=== PATIENT | female | born 1955 | race Caucasian/White ===

== ENCOUNTER 2024-01-04 12:06 | Outpatient (CLI) | payer MEDICARE, SELFPAY ==
--- NOTE | 2024-01-04 12:09 | XR_ITS ---
FINAL REPORT CLINICAL HISTORY: lt hip pain COMPARISON: None FINDINGS: LEFT HIP: 3 images of the left hip were obtained. There is no evidence of fracture or dislocation. Mild degenerative change is present. There is no soft tissue abnormality identified. IMPRESSION: Mild degenerative change, with no acute bony abnormality. Authenticated and [facility]
== END 2024-01-04 23:59 | disposition home or self-care (01) ==
LOC: RAD 12:07
PROVIDERS: PCP Family Medicine; Visit Provider Physician Assistant
DX: M25.552 Pain in left hip (principal)
CPT/HCPCS: 73502

== ENCOUNTER 2024-01-12 13:55 | Outpatient (CLI) | payer MEDICARE, SELFPAY ==
--- NOTE | 2024-01-12 14:02 | CT_ITS ---
FINAL REPORT TECHNIQUE: Thin section axial CT images of the temporal bones were obtained. Coronal and sagittal reformatted images were also obtained. This study was performed with techniques to keep radiation doses as low as reasonably achievable (ALARA). Individualized dose reduction techniques using automated exposure control or adjustment of mA and/or kV according to the patient's size were employed. CLINICAL HISTORY: r/o cholesteatoma and mastoiditis COMPARISON: None FINDINGS: Right temporal bone: The internal auditory canal has an unremarkable appearance. The inner ear structures are unremarkable. The external auditory canal has an unremarkable appearance. No abnormality is identified of the middle ear cavity. The ossicles are intact. The mastoid air cells and mastoid antrum have an unremarkable appearance, other than opacification of 1 mastoid air cell. No bony mass is identified. Left temporal bone: There is evidence of a prior left mastoidectomy. The ossicles are mostly absent. There is lobular soft tissue in the surgical defect, measuring 20 x 7 mm in size, that may represent inflammatory soft tissue, nonspecific. There is thickening of the presumed left tympanic membrane. No bony mass is identified. IMPRESSION: In the left temporal bone, a prior mastoidectomy has been performed. The ossicles are mostly absent. Soft tissue as described above is present in the surgical defect, that may represent inflammatory soft tissue, nonspecific. There is thickening of the presumed left tympanic membrane. There is a small amount of fluid in a mastoid air cell, otherwise unremarkable right temporal bone. Reviewed, Interpreted and Dictated by Juan Abel III, MD Transcribed by Pennie Hensley Authenticated and [facility]
== END 2024-01-12 23:59 | disposition home or self-care (01) ==
LOC: RAD 13:56
PROVIDERS: PCP Family Medicine; Visit Provider Nurse Practitioner
DX: H92.02 Otalgia, left ear (principal); H93.12 Tinnitus, left ear; H91.92 Unspecified hearing loss, left ear
CPT/HCPCS: 70480

== ENCOUNTER 2024-04-25 15:00 | Outpatient (RCR) | payer MEDICARE, SELFPAY ==
--- NOTE | 2024-04-08 12:33 | HMH.PTOPEV ---
PT Outpatient Evaluation Rehab PT Outpatient Evaluation Start: 04/08/24 10:01 Freq: Status: Active Protocol: Document 04/08/24 10:02 MARY LOUSERBRANDAN (Rec: 04/08/24 12:32 PDESEROUX [id number]) E-signed By Raoul Strange, PT Outpatient Therapy Subjective History Subjective History Pt. is a 69 year old female who presents to [facility] Outpatient Physical Therapy Services in [place] for the outpatient initial evaluation this date( 04/08/24) w/ c/o acute on chronic and constant LLE lateral hip P!, TTP, and buckling of insidious onset w/ initial onset in December 2023 that has progressively been getting worse over the last week. Pt. reports having some symptom relief w/ cortisone injection. Pt. reports having minimal symptom relief w/ alternating MHP w/ ice. Pt. reports when symptoms are at it's worse I can't do anything. Pt. reports symptoms worsen w/ donning/ doffing pants, lifting LLE w/ vehicle transfers, and prolonged walking. Pt. describes symptoms at a constant 4/10 that worsens to a 10/10 w/ activity. Pt. reports having previous radiographs of the LLE hip indicated osteoarthritis. Pt. 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 Pt. RTMD in 1 month. Current medications include Tylenol, Pravastatin, Propranolol, Amlodipine, and Cetirizine. PMH includes Hypertension, GERD, pacemaker, sleeve gastrectomy, and section. New diagnosis of cancer in past 12 No months? Chief Complaint Pain,Stiff,Gives out/Unstable, Weakness Symptom Type Ache,Sharp,Stabbing,Shooting Symptoms Relieved By Rest/Positioning,Ice,OTC Meds Symptoms Aggravated By Standing,Physical Activity, Twisting,Walking,Lifting Prior Functional Limitations None Current Functional Limitations Lifting,Housework,Dressing, Sleeping,Squatting,Recreation Activity,Walking,Stairs Symptom Description Constant but Variable,Activity Dependent Level of pain today (0-10) 4 Pain scale - at its best (0-10) 3 Pain scale - at its worst (0-10) 10 Hip/Knee Eval Gait Observation General Gait Pattern Observation Antalgic Gait,Decrease Weight Bear (L),Decrease Stride Lngth (R) Assistive Device Assistive Devices None / NA Palpation Tenderness left Knee Palpation Overall Comment grade 4 +TTP grtr. trchntr., IT band, glute med./max./ piriformis mm. Hip Palpation Findings Tenderness,Spasm,Trigger Point MMT Hip Flexion Strength Grade 3 Fair Hip Abduction Strength Grade 3+ Fair+ Hip Adduction Strength Grade 4 Good Hip Extension Strength Grade 4- Good- Gluteus Chioc Strength Grade 4- Good- Hip External Rotation Strength Grade 3 Fair Hip Internal Rotation Strength Grade 3 Fair Knee Extension Strength Grade 3+ Fair+ Knee Flexion Strength Grade 3 Fair Knee Extensors Muscle Tone Description Severe Hypertonicity Knee Flexors Muscle Tone Description Severe Hypertonicity Hip Extensors Muscle Tone Description Severe Hypertonicity Hip Flexors Muscle Tone Description Severe Hypertonicity ROM Hip Flexion w/Knee Flexed Active Range 67 of Motion (degrees) Hip Flexion w/Knee Flexed Passive Range 99 of Motion (degrees) Hip Extension Active Range of Motion ( 13 degrees) Hip Extension Passive Range of Motion ( 16 degrees) Hip External Rotation Active Range of 20 Motion (degrees) Hip External Rotation Passive Range of 33 Motion (degrees) Hip Internal Rotation Active Range of 23 Motion (degrees) Hip Internal Rotation Passive Range of 35 Motion (degrees) Hip ROM Limitations Soft Tissue Tightness,Pain, Muscle Weakness,Muscle Tone, Tightness on Left,Pain on Left DTR bilateral Rt Patellar 2+ Lt Patellar 2+ Rt Ankle 2+ Lt Ankle 2+ Sensation LE Dermatome Level L1,L2,L3,L4,L5,S1 Comment vocalized light touch sensation WNLs in BLEs in above patterns Special Tests Hip Elías Test Positive Left Hip Piriformis Test Negative Left Sciatic Nerve Tension Test Negative Left Hip Scouring (Quadrant) Test Positive Left Hussain Test Positive Outpatient Therapy Assessment Impairments Problems/Impairmments Palpation Tenderness,Impaired Range of Motion,Impaired Strength,Impaired Endurance, Impaired Transfers,Impaired Gait Pattern,Impaired Walking, Impaired Lifting,Impaired Dressing,Impaired Shower/ Bathing,Impaired Household Care,Impaired Stair Climbing, Impaired Squatting,Impaired Recreational Activities, Subjective C/O Pain,Impaired Self Care/Self Management Prognosis Rehab Potential Good Comment w/ HEP compliancy Clinical Impression Consistent with Diagnosis Yes Consistent with LLE trochanteric bursitis Additional details: LLE ITBS Short Term Goals Number of Weeks 2 Decreased Palpation Tenderness Yes: grade 1-2 +TTP Decrease Subjective C/O Pain Yes: worse:07/06 Patient to be Ind w/ HEP Yes Small Boat Engineer Goals Number of Weeks 4-6 Decreased Palpation Tenderness Yes: grade 1 +TTP Increase Range of Motion Yes: LLE hip A/PROM WFL/ symmetrical to RLE grossly Increase Strength Yes: 4+ to 5/5 RLE hip MMT scores grossly Improve Transfers Yes: Pt. will be able to transfer LLE IND. w/o difficulty into/out vehicle Improve Gait Pattern without Assistive Yes Device Increase Ability to Walk Yes: >20' w/o dfficulty Increase Ability to Stand Yes: >10' w/o difficulty Improve Ability to Dress Self Yes: Pt. will don/doff pants w /o dfficulty Improve Ability to Climb Stairs Yes Improve LEFI Score Yes Decrease Subjective C/O Pain Yes: worse:-04/08 Patient to be Ind w/ Advanced HEP Yes Outpatient Therapy Plan of Care Treatment Plan May Include Therapeutic Exercise Including Home Yes Exercise Program Manual Therapy Techniques Yes Neuromuscular Re-education Yes Therapeutic Activities to Return to Yes Previous Functional/Work Level Gait Training Yes ADL/Self Care Education Yes Dry Needling Yes Thermal Modalities Yes Electrical Stimulation No: pacemaker Ultrasound/Phonophoresis Yes: precaution:pacemker Iontophoresis Yes: precaution:pacemaker Vasopneumatic Compression Pump Yes Massage Yes Eval/Re-Eval Yes Aquatic Therapy Yes Frequency Times per week 2 Duration Number of Weeks 4-6 Addendums This patient is a candidate for social No or vocational rehab? Patient/Guardian verbally acknowledges Yes understanding of treatment program and consents to further treatment? Patient/Guardian verbally acknowledges Yes understanding of diagnosis, prognosis and goals for treatment? Eval Complexity PT Charges 83035 - Low Complexity Shoulder/Elbow Eval Shoulder Objective Measurements Elbow Objective Measurements PHYSICIAN CERTIFICATION: I certify the specified therapy services for Farrah Davis are required, authorized, and reviewed every 30 days.
== END 2024-04-25 23:59 | disposition home or self-care (01) ==
LOC: PT 15:00
PROVIDERS: PCP Internal Medicine; Visit Provider Physician Assistant
DX: M70.62 Trochanteric bursitis, left hip (principal); M76.32 Iliotibial band syndrome, left leg
CPT/HCPCS: 20560; 97035; 97110; 97163

== ENCOUNTER 2024-05-09 07:56 | Outpatient (RCR) | payer MEDICARE, SELFPAY | END 2024-05-27 15:56 | disposition home or self-care (01) | LOC: PT 07:56 | PROVIDERS: PCP Internal Medicine; Visit Provider Physician Assistant | DX: M70.62 Trochanteric bursitis, left hip (principal); M76.32 Iliotibial band syndrome, left leg | CPT/HCPCS: 97110 ==

== ENCOUNTER 2024-06-14 13:23 | Outpatient (CLI) | payer MEDICARE, SELFPAY ==
--- NOTE | 2024-06-14 13:26 | XR_ITS ---
FINAL REPORT CLINICAL HISTORY: low back pain, nki FINDINGS: LUMBAR SPINE 3 views were obtained. There is no acute fracture. Vertebrae are normal height. There is no malalignment. The disc spaces are preserved. There is moderate facet sclerosis in the lower lumbar spine. There is no soft tissue abnormality. IMPRESSION: No acute bony abnormality. Reviewed, Interpreted and Dictated by Cody Franklin MD Transcribed by Shobha Shepard Authenticated and [facility]
== END 2024-06-14 23:59 | disposition home or self-care (01) ==
LOC: RAD 13:24
PROVIDERS: PCP Family Medicine; Visit Provider Family Medicine
DX: M54.50 Low back pain, unspecified (principal)
CPT/HCPCS: 72100

== ENCOUNTER 2024-07-26 10:00 | Outpatient (RCR) | payer MEDICARE, SELFPAY | END 2024-07-26 23:59 | disposition home or self-care (01) | LOC: PT 10:00 | PROVIDERS: PCP Family Medicine; Visit Provider Physician Assistant | DX: M70.62 Trochanteric bursitis, left hip (principal); M76.32 Iliotibial band syndrome, left leg | CPT/HCPCS: 20560; 97110; 97140; 97163 ==

== ENCOUNTER 2024-09-08 06:03 | Observation (INO) | payer MEDICARE, SELFPAY ==
[2024-09-08] VITALS (11 sets, daily range): BP systolic 108–144; BP diastolic 62–77; PULSE 63–82; RESP 11–21; TEMP 36.4–37.1; O2SAT 93–97; BMI 32.0; BMI 31.8
--- NOTE | 2024-09-08 06:05 | ECG_ITS ---
APPROVED REPORT Exam: Resting ECG HR:76 bpm ECG Measurements Heart Rate 76 AXES OR 208 P 48 QRSd 77 QRS 0 QT 394 T 32 QTc 424 Conclusion SINUS RHYTHM NORMAL ECG Electronically signed by : CHOLO CABRERA, 09/09/2024 23:02:44
--- OUTSIDE RECORDS SUMMARY | 2024-09-08 06:09 | XMS_ITS | Clinical Summary ---
Author Organization Healthcare Address [address] [id number] Care Team Providers Care Rn Interventional Name Role Phone Eros Tucker MD Primary Care Provider Shani Watt Jacque Roselyn HEADER SETUP OPERATOR Unavailable [phone] Allergies Active Allergy Reactions Criticality Noted Date Comments Penicillins Unknown - Patient st ates they do not know rxn details Low 02/27/1962 Medications amLODIPine (Norvasc) 5 MG tablet Take 1 tablet (5 mg) by mouth 1 (one) time each day. Active aspirin 81 MG EC tablet 1 tablet (81 mg). 12/28/2023 Active sertraline (Zoloft) 100 MG tablet 1 tablet (100 mg). 12/28/2023 Active pravastatin (Pravachol) 40 MG tablet 1 tablet (40 mg). 12/28/2023 Active Pantoprazole Sodium-NaCl 40-0.9 MG/100ML-% solution 08/16/2021 Active LORazepam (Ativan) 1 MG tablet 1 tablet (1 mg). 12/28/2023 Active Active Problems No known active problems Encounters Date Type Department Care Team Description 07/22/2024 Travel from Last 3 Months Social History Tobacco Use Types Packs/Day Years Used Date Smoking Tobacco: Unknown Tobacco Cessation:Counseling Given: Not Answered Comments Unknown Sex and Gender Information Value Date Recorded Sex Assigned at Not on file Legal Sex Female 1:18 PM EST Gender Identity Not on file Sexual Orientation Not on file Last Filed Vital Signs Vital Sign Reading Time Taken Comments Blood Pressure 134/78 02/05/2024 8:26 AM EST Pulse 73 02/05/2024 8:26 AM EST Temperature - - Respiratory Rate - - Oxygen Saturation - - Inhaled Oxygen Concentration - - Weight 78.5 kg (173 lb) 02/05/2024 8:26 AM EST Height - - Body Mass Index - - Plan of Treatment Health Maintenance Due Date Last Done Comments [facility]-Bone Density Scan 1957 [facility]-Depression Screening 1957 [facility]-Hepatitis C Screening 1957 [facility]-Infant/Child/Adol SDOH Screenings 1957 [facility]- SDOH Screenings 1975 [facility]-Adult SDOH Screenings 1975 [facility]-DTaP,Tdap,and Td Vaccine s (1 - Tdap) 1976 CT Colonography 2002 Colonoscopy 2002 FIT-DNA 2002 FIT 2002 FOBT 2002 Sigmoidoscopy 2002 [facility]-Colorectal Cancer Screening 2002 [facility]-Breast Cancer Screening 2007 [facility]-Pneumococcal Vaccine: 50 + Years (1 of 1 - PCV) 2007 [facility]-Zoster Vaccines (1 of 2) 2007 LOH-SPYMG-03 Vaccine (1 - 20 24-25 season) 2023 [facility]-Influenza Vaccine (#1) 2024 [facility]-RSV Vaccine: 60+ Years o r (1 - 1-dose 75+ series) 2032 HPV Vaccines Aged Out No longer eligi ble based on patient's age to complete this topic [facility]-HIB Vaccines Aged Out No longer e ligible based on patient's age to complete this topic [facility]-Hepatitis A Vaccines Aged Out No longer eligible based on patient's age to complete this topic [facility]-IPV Vaccines Aged Out No longer e ligible based on patient's age to complete this topic [facility]-Rotavirus Vaccines Aged Out No lo nger eligible based on patient's age to complete this topic Insurance [employer] Care Teams Rn Interventional Relationship Specialty Start Date End Date Eros Tucker MD PCP - General Family Medicine 01/18/24 Jacque Watt APRN [address] [place] [address] [place] [address] 01/18/24
--- OUTSIDE RECORDS SUMMARY | 2024-09-08 06:09 | XMS_ITS | Clinical Summary ---
Author Organization [facility] Address [address] [place] [id number] Phone Care Team Providers Care Artificial Leather Calender Operator Name Role Phone Unavailable Primary Care Provider Unavailabl e Social History Tobacco Use Types Packs/Day Years Used Date Smoking Tobacco: Never Assessed Comments Unknown Sex and Gender Information Value Date Recorded Sex Assigned at Not on file Legal Sex Female 1:32 PM EDT Gender Identity Not on file Sexual Orientation Not on file Plan of Treatment Upcoming Encounters Date Type Department Care Team (Late st Contact Info) Description 09/12/2024 1:30 PM EDT Office Visit [facility] [address] [place] [address] [place] [address] [place] [address] [place] [address] Health Maintenance Due Date Last Done Comments Annual Wellness Exam 1960 Hepatitis C Screening 1975 DTaP/TDaP/Td (1 - Tdap) 1976 Breast Cancer Screening 1997 Cologuard 2002 Colon Cancer Screening 2002 Colonoscopy 2002 FIT 2002 Sigmoidoscopy 2002 Virtual Colonography 2002 Pneumococcal Vaccine 50+ (1 of 1 - PCV) 2007 Zoster (1 of 2) 2007 Bone Density Screening 2022 COVID-19 Vaccine ( - 2023-2 5 season) 2023 Influenza Vaccine (#1) 2024 Hepatitis B Vaccine Aged Out No longe r eligible based on patient's age to complete this topic Meningococcal B Vaccine Aged Out No l onger eligible based on patient's age to complete this topic
--- OUTSIDE RECORDS SUMMARY | 2024-09-08 06:09 | XMS_ITS | Encounter Summary ---
Author Organization Healthcare Address [address] [id number] Care Team Providers Care Press Machine Feeder Name Role Phone Eros Tucker MD Primary Care Provider Jacque Parker JEWEL BEARING GRINDER Unavailable [phone] Encounter Details Date Type Department Care Team (Latest Contact Info) Description 07/22/2024 Travel Social History Tobacco Use Types Packs/Day Years Used Date Smoking Tobacco: Unknown Comments Unknown Sex and Gender Information Value Date Recorded Sex Assigned at Not on file Legal Sex Female 1:18 PM EST Gender Identity Not on file Sexual Orientation Not on file documented as of this encounter Plan of Treatment Not on file documented as of this encounter Visit Diagnoses Not on filedocumented in this encounter Additional Health Concerns Assessment Noted Time A Body Mass Index follow-up plan has been documented for the patient 02/11/2024 11:38 PM EST documented as of this encounter Care Teams Press Machine Feeder Relationship Specialty Start Date End Date Eros Tucker MD PCP - General Family Medicine 01/18/24 Jacque Watt, CORBIN [address] [place] [address] 01/18/24 documented as of this encounter
--- NOTE | 2024-09-08 06:16 | XR_ITS ---
PROCEDURE INFORMATION: Exam: XR Chest Exam date and time: 09/08/2024 6:24 AM Age: 69 years old Clinical indication: Pain; Other: Cp; Additional info: Chest pain TECHNIQUE: Imaging protocol: Radiologic exam of the chest. Views: 1 view. COMPARISON: No relevant prior studies available. FINDINGS: Tubes, catheters and devices: Transvenous pacemaker leads in the heart Lungs: Unremarkable. No consolidation. Pleural spaces: Unremarkable. No pleural effusion. No pneumothorax. Heart/Mediastinum: Unremarkable. No cardiomegaly. Bones/joints: Unremarkable. IMPRESSION: No acute findings.
[2024-09-08 06:23] LABS: Hematocrit 37.8 % (37.0-47.0); Hemoglobin 11.4 g/dL (12.2-16.2); Immature Granulocytes % 0.4 %; Mean Corpuscular HGB Conc 30.2 g/dL (31.8-35.4); Mean Corpuscular Hemoglobin 24.3 pg (27.0-31.2); Mean Corpuscular Volume 80.6 fl (81-99); Nucleated Red Blood Cells % 0 %; Platelet Count 343 K/mm3 (142-424); Red Blood Count 4.69 M/mm3 (4.20-5.40); Red Cell Distribution Width-SD 46.3 fL; White Blood Count 8.4 K/mm3 (4.8-10.8)
[2024-09-08] MEDS: ASPIRIN 81MG CHEWABLE TABLET 243 MG PO (06:24)
[2024-09-08] MEDS: NITROGLYCERIN 0.4MG SL TABLET 0.4 MG SL (06:24)
[2024-09-08 06:32] LABS: Alanine Aminotransferase 25 U/L (12-78); Albumin Level 4.3 g/dl (3.5-5.0); Albumin/Globulin Ratio 1.3 (1.1-1.8); Alkaline Phosphatase 79 U/L (38-126); Anion Gap 15.2 mEq/L (5-15); Aspartate Amino Transferase 33 U/L (14-36); Bilirubin,Total 0.6 mg/dl (0.2-1.3); Blood Urea Nitrogen 14 mg/dl (7-17); Calcium 8.4 mg/dl (8.4-10.2); Carbon Dioxide 27 mmol/L (22.0-30.0); Chloride 103 mmol/L (98-107); Creatinine Clearance Estimated 68 mL/min (50-200); Creatinine,Serum 1.00 mg/dl (0.52-1.04); Estimated Glomerular Filt Rate 55 ml/min (>60); GFR (African American) 67 ML/MIN (>60); Globulin 3.2 g/dL (1.3-3.2); Potassium 4.2 mmoL/L (3.5-5.1); Sodium 141 mmol/L (136-145); Total Protein,Serum 7.5 g/dl (6.3-8.2)
[2024-09-08 06:36] LABS: D-Dimer 0.90 ug/mL (0.0-0.5)
[2024-09-08 06:39] LABS: Glucose 85 mg/dl (74-100)
--- NOTE | 2024-09-08 06:43 | CT_ITS ---
PROCEDURE INFORMATION: Exam: CTA Chest With Contrast Exam date and time: 09/08/2024 7:11 AM Age: 69 years old Clinical indication: Pain; Shortness of breath; Other: Cp; Additional info: Subjective SOA, cp, dimer 0.9 TECHNIQUE: Imaging protocol: Computed tomographic angiography of the chest with contrast. Exam focused on the arteries. 3D rendering (Not supervised by radiologist): MIP and/or 3D reconstructed images were created by the technologist. Radiation optimization: All CT scans at this facility use at least one of these dose optimization techniques: automated exposure control; mA and/or kV adjustment per patient size (includes targeted exams where dose is matched to clinical indication); or iterative reconstruction. Contrast material: ISOVUE; Contrast volume: 70 ml; Contrast route: INTRAVENOUS (IV); COMPARISON: CR XR CHEST PORTABLE 09/08/2024 6:24 AM FINDINGS: Tubes, catheters and devices: Transvenous pacemaker leads in the heart Pulmonary arteries: Small pulmonary embolus in the right middle lobe. (series 5 image 56).. Aorta: No aneurysm of the aorta. No dissection of the aorta. Lungs: Unremarkable. No consolidation. No masses. Pleural spaces: Unremarkable. No pneumothorax. No pleural effusion. Heart: Right ventricular dysfunction 1.1 Coronary arteries: Coronary artery calcifications may indicate coronary artery disease. Lymph nodes: Unremarkable. No enlarged lymph nodes. Diaphragm: Mild hiatal hernia Liver: Lobulated liver consistent with cirrhosis. Gallbladder and biliary ducts: There may be gallstones in the gallbladder . Kidneys: 2.8 cm simple cyst left kidney . No follow-up imaging recommended . Stomach: Surgical clips in the stomach Bones/joints: Unremarkable. No acute fracture. Soft tissues: Unremarkable. IMPRESSION: 1. Small pulmonary embolus in the right middle lobe. (series 5 image 56).. 2. No aneurysm of the aorta. 3. No dissection of the aorta. 4. There may be gallstones in the gallbladder . 5. Lobulated liver consistent with cirrhosis. COMMENTS: Consistent with the [employer]'s Incidental Findings Committee white paper (J Am Glen Radiol 2018): Any incidental renal lesion less than 1 cm or classified as too small to characterize, or any incidental cystic renal lesion characterized as simple-appearing, is likely benign. No follow-up imaging is recommended for these lesions per consensus recommendations based on imaging criteria.
--- NOTE | 2024-09-08 06:46 | ED_ITS ---
Discharge Plan Disposition Patient Disposition: Admitted Condition: Good Clinical Impressions Clinical Impression: Pulmonary embolism, Right ventricular dysfunction Discharge ED Provider: Elizabeth Dorsey HPI <Lea Boateng MD - Last Filed: 09/08/24 07:01> General Chief Complaint: Chest Pain Stated Complaint: Chest Pain Time Seen by Provider: 09/08/24 06:23 Mode of Arrival: Ambulatory Source of Information: Patient Description of Symptoms (Recalled from ER Triage Doc. by RN): pt states she woke up with chest pain 2 hours prior to arrival. Pain at this time was rated 9/10 sharp and stabbing and felt SOA. Pt states it has improved, rating pain 3/10 and no longer feels SOA. Pt states she has had episodes in the past few months where she will get SOA and feels like her pulse goes way up. Pt also states she had sinus infection and was taking steroid and zpack that she finished 1 week ago. History of Present Illness HPI narrative: 69-year-old female with history of hypertension, heartburn, reflux on pantoprazole, pacemaker presents to the ER with chest pain that woke her up a little over 2 hours prior to arrival. Patient reports her pain woke her up at 10 out of 10, stabbing and radiated to her back but was not a tearing sensation. She took 1 baby aspirin at home. She states it started to improve while they were driving in the car on their way here and it has continued to improve since arriving in the ER. At the time of triage she stated her pain was only a 3 out of 10, to me she reports no pain at the time of my assessment. She states that for the last week or so she has felt a sensation of shortness of breath without actually being short of breath or having low oxygen levels. She states she had a sinus infection and finished antibiotics 1 week ago. No current fevers or chills, no dizziness or headache, no numbness, tingling, or weakness. Chest pain did not radiate except directly through to the back, no swelling in the feet or legs, no nausea, vomiting, or diarrhea. She does not complain of any other symptoms or illness at this time. Related Data Home Medications ?Medication ?Instructions ?Recorded ?Confirmed phentermine 37.5 mg tablet 37.5 mg PO DAILY 09/08/24 0 09/08/24 Previous Rx's ?Medication ?Instructions ?Recorded amlodipine 10 mg tablet 10 mg PO DAILY #90 tabs 07/28 04/23 pravastatin 40 mg tablet 40 mg PO DAILY 90 days #90 t abs 08/08/24 sertraline 100 mg tablet 100 mg PO DAILY 90 days #90 tabs 08/08/24 pantoprazole 40 mg tablet,delayed 40 mg PO DAILY 90 da ys #90 tabs 08/12/24 release Allergies Allergy/AdvReac Type Severity Reaction Status Date / Time Penicillins AdvReac Mild Verified 08/26/24 10:44 [facility] <Lea Boateng MD - Last Filed: 09/08/24 07:01> [facility] Disclaimer: The information contained in this section may have been updated after the patient was seen, as this information can be updated by other users. 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 Tinnitus, left ear Otalgia, left ear History of cardiac pacemaker Surgical History H/O: section History of sleeve gastrectomy History of left mastoidectomy Social History Smoking Status: Never smoker alcohol intake: never current occupational status: retired Travel in the last 8 weeks?: Inside the [place] Have you lived/traveled outside US in past 30 days?: No Contact w/someone who lives/traveled outside US past 30 days?: No Exposure to someone with infectious disease in past 14 days?: No Do you have a fever (greater than 100.4 F or 38 C)?: No Have you tested positive for COVID-19?: No Exposed to someone with COVID-19 in past 14 days?: No Do you have a sore throat?: No Do you have a cough?: No Do you have any weakness?: No Do you have any diarrhea?: No Are you experiencing any unusual bleeding?: No Do you have any muscle aches/pain?: No Do you have any abdominal pain?: No Are you experiencing loss of taste or smell?: No Other Medical History Have you received the Pneumonia Vaccine: No <Lea Boateng MD - Last Filed: 09/08/24 07:01> ROS Obtained: Yes Systems reviewed as appropriate & no additional complaints except as documented Per HPI Physical Exam <MD Pacheco Cuellar Last Filed: 09/08/24 07:01> General General appearance: alert, in no apparent distress and obese Head Head exam: atraumatic and normocephalic Eye Eye exam: Present PERRL and EOMI ENT ENT exam: Present mucous membranes moist Neck Neck exam: Present normal inspection and full ROM Chest Chest inspection: Present symmetric chest wall rise; Absent tenderness Respiratory Respiratory exam: Present normal lung sounds bilaterally and other (Saturating 94% on room air); Absent respiratory distress, wheezes or stridor Cardiovascular Cardiovascular exam: Present regular rate and normal rhythm Abdominal Exam Abdominal exam: Present soft; Absent distention or tenderness Extremities Exam Extremities exam: Present full ROM Neurological Exam Neurological exam: Present alert and oriented X3; Absent motor sensory deficit Psychiatric Psychiatric exam: Present normal affect and normal mood Skin Skin exam: Present warm and dry HEART Score <MD Pacheco Cuellar Last Filed: 09/08/24 07:01> HEART Score HEART Score assessment performed?: Yes History (anamnesis): Slightly suspicious ECG: Normal Age: >65 years Risk factors: 3 or more risk factors Troponin: </= normal limit HEART Score: 4 <Elizabeth Dorsey DO - Last Filed: 09/08/24 10:12> HEART Score HEART Score: 4 Critical Care <Lea Boateng MD - Last Filed: 09/08/24 07:01> Critical Care Time Critical Care Time: No <DO Pacheco Gillis Last Filed: 09/08/24 10:12> Critical Care Time Critical Care Time: Yes Attestation: On 09/08/24, the high probability of a clinically significant, sudden or life threatening deterioration of the following system(s) required my full and direct attention, intervention and personal management. The time I documented below is in addition to time spent performing reported procedures but includes the following listed in this critical care notation. Total Time Total Critical Care Time: 35 Medical Decision Making <Lea Boateng MD - Last Filed: 09/08/24 07:01> Medical Records Medical records reviewed: Yes I reviewed the patient's medical records. Néstor Inquiry Pt receiving controlled substance: No Vital Signs Vital Signs: 09/08/24 06:09 09/08/24 06:19 09/08/24 06:30 Temperature 98.7 F Temperature Source Oral Pulse Rate 69 71 Pulse Rate [Right Radial] 69 Respiratory Rate 21 11 L Blood Pressure 108/67 L Blood Pressure [Right Arm] 133/70 Blood Pressure Mean Blood Pressure Mean [Right Arm] 91 Blood Pressure Source [Right Arm] Automatic Cuff Blood Pressure Position [Right Arm] Sitting 02 Sat by Pulse Oximetry 94 L 96 Oxygen Delivery Method Room Air 09/08/24 07:30 09/08/24 08:00 09/08/24 08:30 Temperature Temperature Source Pulse Rate 64 69 69 Pulse Rate [Right Radial] Respiratory Rate 18 15 21 Blood Pressure 125/75 117/67 135/71 Blood Pressure [Right Arm] Blood Pressure Mean 85 Blood Pressure Mean [Right Arm] Blood Pressure Source [Right Arm] Blood Pressure Position [Right Arm] 02 Sat by Pulse Oximetry 93 L 97 95 Oxygen Delivery Method Room Air Room Air 09/08/24 09:28 Temperature 98.2 F Temperature Source Pulse Rate 64 Pulse Rate [Right Radial] Respiratory Rate 14 Blood Pressure 144/76 H Blood Pressure [Right Arm] Blood Pressure Mean Blood Pressure Mean [Right Arm] Blood Pressure Source [Right Arm] Blood Pressure Position [Right Arm] 02 Sat by Pulse Oximetry Oxygen Delivery Method Room Air Lab Data Labs: Lab Results 09/08/24 06:09: WBC 8.4, RBC 4.69, Hgb 11.4 L, Hct 37.8, MCV 80.6 L, MCH 24.3 L, MCHC 30.2 L, RDW 16.0, Plt Count 343, MPV 9.9, Neut % (Auto) 48.0, Lymph % (Auto) 39.4, Mills % (Auto) 8.9, Eos % (Auto) 2.1, Baso % (Auto) 1.2, Neut # (Auto) 4.1, Lymph # (Auto) 3.3, Mills # (Auto) 0.8, Eos # (Auto) 0.2, Baso # (Auto) 0.1, PT 10.5, INR 0.94, APTT 23.4, D-Dimer 0.90 H, Sodium 141, Potassium 4.2, Chloride 103, Carbon Dioxide 27, Anion Gap 15.2 H, BUN 14, Creatinine 1.00, Estimated Creat Clear 68, Estimated GFR 55 L, Est GFR ( Amer) 67, Glucose 85, Calcium 8.4, Total Bilirubin 0.6, AST 33, ALT 25, Alkaline Phosphatase 79, Troponin I < 0.01, Total Protein 7.5, Albumin 4.3, Globulin 3.2, Albumin/Globulin Ratio 1.3, HCV Ab TRISTAN w/Rflx PCR Qn Negative, HIV Ag/Ab Combo Qual Negative 09/08/24 06:09 09/08/24 06:09 Response Orders (Tests/Meds): ED MEDICATIONS Generic Name Dose Route Start Last Admin Trade Name Freq PRN Reason Stop Dose Admin Acetaminophen 650 mg 09/08/24 09:08 Acetaminophen 325mg Tab PO 10/08/24 09:07 Q4HP PRN Fever or Mild Pain (1-3) Enoxaparin Sodium 80 mg 09/08/24 08:30 09/08/24 09:04 Enoxaparin 100mg/Ml Syringe 1 mg/kg (80 mg) 10/08/24 08:29 80 mg SUBCUT Administration Q12H TAHIR Morphine Sulfate 4 mg 09/08/24 09:08 Morphine 4mg/Ml Syringe IV 10/08/24 09:07 Q4HP PRN Severe Pain (7-10) Nitroglycerin 0.4 mg 09/08/24 06:16 09/08/24 06:24 Nitroglycerin 0.4mg Sl Tablet SL 09/09/24 06:16 0.4 mg Q5MINP PRN Administration Chest Pain Ondansetron HCl 4 mg 09/08/24 09:08 Ondansetron 4mg/2ml Vial IV 10/08/24 09:07 Q8HP PRN Nausea Discontinued Medications Generic Name Dose Route Start Last Admin Trade Name Freq PRN Reason Stop Dose Admin Aspirin 243 mg 09/08/24 06:16 09/08/24 06:24 Aspirin 81mg Chewable Tablet PO 09/08/24 06:17 243 mg ONCE ONE Administration Iopamidol 70 ml 09/08/24 07:18 09/08/24 07:19 Iopamidol-370 (76%);100ml Bottle IV 09/08/24 07:19 70 ml ONCE ONE Administration Sodium Chloride 10 ml 09/08/24 07:18 09/08/24 07:19 Sodium Chloride 0.9% 10ml Syr (Rad Only) IV 09/08/24 07:19 10 ml ONCE ONE Administration Sodium Chloride 50 ml 09/08/24 07:18 09/08/24 07:19 0.9 % Sodium Chloride 50 Ml Vial IV 09/08/24 07:19 50 ml ONCE ONE Administration ORDERS Category Date Time Status CT angio chest PE protocol Stat Cat Scan 09/08/24 06:43 Completed XR chest portable Stat Exams 09/08/24 06:16 Completed Complete Blood Count Auto Diff Stat Lab 09/08/24 06:09 Completed Comprehensive Metabolic Panel Stat Lab 09/08/24 06:09 Completed D-Dimer Stat Lab 09/08/24 06:09 Completed HIV Combo Routine Lab 09/08/24 06:09 Completed Hepatitis C Ab Qual. W/ RFX Routine Lab 09/08/24 06:09 Completed PT INR [Prothrombin Time INR] Stat Lab 09/08/24 06:09 Completed PTT [Activated Partial Thrombo Time] Stat Lab 09/08/24 06:09 Completed Troponin I Q3H Lab 09/08/24 09:01 Completed Troponin I Q3H Lab 09/08/24 12:30 Ordered Troponin I Stat Lab 09/08/24 06:16 Completed 12-lead EKG Request [ECG Request] Stat Y 09/08/24 06:06 Ordered MDM Narrative Medical Decision Narrative: In summary, this 69-year-old female with comorbidities described in the HPI which may not be at goal therapy presents to the emergency department today with chest pain starting 2 hours prior to arrival but has now resolved. On initial evaluation patient is hemodynamically stable, afebrile, GCS 15, patient has no symptoms at this time, chest pain is not reproducible on exam, cardiopulmonary exam benign. Differential diagnosis includes but is not limited to ACS, PE, esophageal spasm, electrolyte abnormality, pneumothorax, among others. Ruling out most morbid conditions throughout my assessment. Based on these concerns I ordered serum labs, D-dimer, cardiac workup ECG personally interpreted demonstrates normal sinus rhythm, rate 76, normal axis, normal MN and QTc, no STEMI. Patient received aspirin for treatment. Labs personally reviewed demonstrate no leukocytosis, mild anemia which is nonspecific and nonactionable, normal platelets, CMP nonactionable, initial troponin undetectably low less than 0.01, D-dimer 0.9, with patient's complaint of shortness of breath and chest pain we will pursue this with CTA PE. Chest x-ray personally interpreted does not demonstrate acute thoracic abnormality, see radiology read for final interpretation which is pending at this time. CT angiography pending. Patient handed off to Dr. Dorsey in stable condition with no symptoms at this time. Pending radiology studies and serial troponin <Elizabeth N Willian, DO - Last Filed: 09/08/24 10:12> Vital Signs Vital Signs: 09/08/24 06:09 09/08/24 06:19 09/08/24 06:30 Temperature 98.7 F Temperature Source Oral Pulse Rate 69 71 Pulse Rate [Right Radial] 69 Respiratory Rate 21 11 L Blood Pressure 108/67 L Blood Pressure [Right Arm] 133/70 Blood Pressure Mean Blood Pressure Mean [Right Arm] 91 Blood Pressure Source [Right Arm] Automatic Cuff Blood Pressure Position [Right Arm] Sitting 02 Sat by Pulse Oximetry 94 L 96 Oxygen Delivery Method Room Air 09/08/24 07:30 09/08/24 08:00 09/08/24 08:30 Temperature Temperature Source Pulse Rate 64 69 69 Pulse Rate [Right Radial] Respiratory Rate 18 15 21 Blood Pressure 125/75 117/67 135/71 Blood Pressure [Right Arm] Blood Pressure Mean 85 Blood Pressure Mean [Right Arm] Blood Pressure Source [Right Arm] Blood Pressure Position [Right Arm] 02 Sat by Pulse Oximetry 93 L 97 95 Oxygen Delivery Method Room Air Room Air 09/08/24 09:28 Temperature 98.2 F Temperature Source Pulse Rate 64 Pulse Rate [Right Radial] Respiratory Rate 14 Blood Pressure 144/76 H Blood Pressure [Right Arm] Blood Pressure Mean Blood Pressure Mean [Right Arm] Blood Pressure Source [Right Arm] Blood Pressure Position [Right Arm] 02 Sat by Pulse Oximetry Oxygen Delivery Method Room Air Lab Data Labs: Lab Results 09/08/24 06:09: WBC 8.4, RBC 4.69, Hgb 11.4 L, Hct 37.8, MCV 80.6 L, MCH 24.3 L, MCHC 30.2 L, RDW 16.0, Plt Count 343, MPV 9.9, Neut % (Auto) 48.0, Lymph % (Auto) 39.4, Mills % (Auto) 8.9, Eos % (Auto) 2.1, Baso % (Auto) 1.2, Neut # (Auto) 4.1, Lymph # (Auto) 3.3, Mills # (Auto) 0.8, Eos # (Auto) 0.2, Baso # (Auto) 0.1, PT 10.5, INR 0.94, APTT 23.4, D-Dimer 0.90 H, Sodium 141, Potassium 4.2, Chloride 103, Carbon Dioxide 27, Anion Gap 15.2 H, BUN 14, Creatinine 1.00, Estimated Creat Clear 68, Estimated GFR 55 L, Est GFR ( Amer) 67, Glucose 85, Calcium 8.4, Total Bilirubin 0.6, AST 33, ALT 25, Alkaline Phosphatase 79, Troponin I < 0.01, Total Protein 7.5, Albumin 4.3, Globulin 3.2, Albumin/Globulin Ratio 1.3, HCV Ab TRISTAN w/Rflx PCR Qn Negative, HIV Ag/Ab Combo Qual Negative Response Orders (Tests/Meds): ED MEDICATIONS Generic Name Dose Route Start Last Admin Trade Name Freq PRN Reason Stop Dose Admin Acetaminophen 650 mg 09/08/24 09:08 Acetaminophen 325mg Tab PO 10/08/24 09:07 Q4HP PRN Fever or Mild Pain (1-3) Enoxaparin Sodium 80 mg 09/08/24 08:30 09/08/24 09:04 Enoxaparin 100mg/Ml Syringe 1 mg/kg (80 mg) 10/08/24 08:29 80 mg SUBCUT Administration Q12H TAHIR Morphine Sulfate 4 mg 09/08/24 09:08 Morphine 4mg/Ml Syringe IV 10/08/24 09:07 Q4HP PRN Severe Pain (7-10) Nitroglycerin 0.4 mg 09/08/24 06:16 09/08/24 06:24 Nitroglycerin 0.4mg Sl Tablet SL 09/09/24 06:16 0.4 mg Q5MINP PRN Administration Chest Pain Ondansetron HCl 4 mg 09/08/24 09:08 Ondansetron 4mg/2ml Vial IV 10/08/24 09:07 Q8HP PRN Nausea Discontinued Medications Generic Name Dose Route Start Last Admin Trade Name Freq PRN Reason Stop Dose Admin Aspirin 243 mg 09/08/24 06:16 09/08/24 06:24 Aspirin 81mg Chewable Tablet PO 09/08/24 06:17 243 mg ONCE ONE Administration Iopamidol 70 ml 09/08/24 07:18 09/08/24 07:19 Iopamidol-370 (76%);100ml Bottle IV 09/08/24 07:19 70 ml ONCE ONE Administration Sodium Chloride 10 ml 09/08/24 07:18 09/08/24 07:19 Sodium Chloride 0.9% 10ml Syr (Rad Only) IV 09/08/24 07:19 10 ml ONCE ONE Administration Sodium Chloride 50 ml 09/08/24 07:18 09/08/24 07:19 0.9 % Sodium Chloride 50 Ml Vial IV 09/08/24 07:19 50 ml ONCE ONE Administration ORDERS Category Date Time Status CT angio chest PE protocol Stat Cat Scan 09/08/24 06:43 Completed XR chest portable Stat Exams 09/08/24 06:16 Completed Complete Blood Count Auto Diff Stat Lab 09/08/24 06:09 Completed Comprehensive Metabolic Panel Stat Lab 09/08/24 06:09 Completed D-Dimer Stat Lab 09/08/24 06:09 Completed HIV Combo Routine Lab 09/08/24 06:09 Completed Hepatitis C Ab Qual. W/ RFX Routine Lab 09/08/24 06:09 Completed PT INR [Prothrombin Time INR] Stat Lab 09/08/24 06:09 Completed PTT [Activated Partial Thrombo Time] Stat Lab 09/08/24 06:09 Completed Troponin I Q3H Lab 09/08/24 09:01 Completed Troponin I Q3H Lab 09/08/24 12:30 Ordered Troponin I Stat Lab 09/08/24 06:16 Completed 12-lead EKG Request [ECG Request] Stat Y 09/08/24 06:06 Ordered MDM Narrative Medical Decision Narrative: In summary, this 69-year-old female with comorbidities described in the HPI which may not be at goal therapy presents to the emergency department today with chest pain starting 2 hours prior to arrival but has now resolved. On initial evaluation patient is hemodynamically stable, afebrile, GCS 15, patient has no symptoms at this time, chest pain is not reproducible on exam, cardiopulmonary exam benign. Differential diagnosis includes but is not limited to ACS, PE, esophageal spasm, electrolyte abnormality, pneumothorax, among others. Ruling out most morbid conditions throughout my assessment. Based on these concerns I ordered serum labs, D-dimer, cardiac workup ECG personally interpreted demonstrates normal sinus rhythm, rate 76, normal axis, normal MN and QTc, no STEMI. Patient received aspirin for treatment. Labs personally reviewed demonstrate no leukocytosis, mild anemia which is nonspecific and nonactionable, normal platelets, CMP nonactionable, initial troponin undetectably low less than 0.01, D-dimer 0.9, with patient's complaint of shortness of breath and chest pain we will pursue this with CTA PE. Chest x-ray personally interpreted does not demonstrate acute thoracic abnormality, see radiology read for final interpretation which is pending at this time. CT angiography pending. Patient handed off to Dr. Dorsey in stable condition with no symptoms at this time. Pending radiology studies and serial troponin Willian, DO: I assumed care of the patient at 7 AM at time of departure previous provider. Labs obtained demonstrate mild anemia. D-dimer was elevated, so CT PE protocol was ordered. Chemistry otherwise is reassuring with negative troponin. I independently interpreted CT PE and noted small PE. Radiology called me and notified me of possible right heart strain. patient has no known risk factors for DVT/PE, so it is possible this was unprovoked. Given this, I feel that she would benefit from admission for further evaluation and management. Therapeutic Lovenox was administered and I had an interactive discussion with the hospitalist who admitted the patient in stable condition
[2024-09-08 06:54] LABS: Troponin I < 0.01 ng/ml (0.00-0.034)
[2024-09-08] MEDS: SODIUM CHLORIDE 0.9% 10ML SYR (RAD ONLY) 10 ML IV (07:19)
[2024-09-08] MEDS: IOPAMIDOL-370 (76%);100ML BOTTLE 70 ML IV (07:19)
[2024-09-08] MEDS: 0.9 % SODIUM CHLORIDE 50 ML VIAL IV (07:19)
[2024-09-08 07:44] LABS: Hepatitis C Ab Qual. W/ RFX NEGATIVE (Negative)
--- NOTE | 2024-09-08 08:40 | PC.NURSE ---
track inspecting supervisor called for bed
[2024-09-08 08:50] LABS: Activated Partial Thrombo Time 23.4 seconds (22.8-30.6); INR 0.94 (0.9-1.1); Prothrombin Time 10.5 seconds (10.1-12.5)
[2024-09-08 09:37] LABS: Troponin I < 0.01 ng/ml (0.00-0.034)
--- NOTE | 2024-09-08 10:00 | HMH.PHAINT1 ---
Pharmacy Intervention Comments: MEDICATION RECONCILIATION COMPLETE USING EXTERNAL PHARMACY FILL HISTORY, RECENT MD OFFICE VISIT NOTE, AND DANDRE REPORT (PATIENT HAS FILLED PHENTERMINE RECENTLY BUT HAS NO FILL HISTORY FOR [facility]).
[2024-09-08 12:52] LABS: Troponin I < 0.01 ng/ml (0.00-0.034)
[2024-09-08] MEDS: ACETAMINOPHEN 325MG TAB 650 MG PO (13:20)
--- OUTSIDE RECORDS SUMMARY | 2024-09-08 14:08 | XMS_ITS | Clinical Summary ---
Author Organization Healthcare Address [address] [id number] Care Team Providers Care Accounts Receivable Collector Name Role Phone Eros Tucker MD Primary Care Provider Shani Watt Jacque Roselyn ENGINEHOUSE BRAKEMAN Unavailable Allergies Active Allergy Reactions Criticality Noted Date [...] 2007 UKY-Zoster Vaccines (1 of 2) 2007 [id number] Vaccine (1 - 20 24-25 season) 2023 [...] complete this topic Insurance [employer] Care Teams Accounts Receivable Collector Relationship Specialty Start Date End Date Eros Tucker MD PCP - General Family Medicine 01/18/24 Jacque Watt APRN [address] [place] [address] [place] [id number] 01/18/24
--- OUTSIDE RECORDS SUMMARY | 2024-09-08 14:08 | XMS_ITS | Clinical Summary ---
Author Organization [facility] Address [address] [place] [id number] Phone Care Team Providers Care Sorter/Assay Tech Name Role Phone Unavailable Primary Care Provider [...] Visit [facility] [address] [place] [address] [place] [address] [place] [address] [place] [address] Health Maintenance Due Date Last Done Comments [...]
--- OUTSIDE RECORDS SUMMARY | 2024-09-08 14:08 | XMS_ITS | Encounter Summary ---
Author Organization Healthcare Address [address] [id number] Care Team Providers Care Education Consultant Name Role Phone Eros Tucker MD Primary Care Provider Jacque Parker INSIGHTS ANALYST Unavailable [phone] Encounter Details Date Type Department Care [...] documented as of this encounter Care Teams Education Consultant Relationship Specialty Start Date End Date Eros Tucker MD PCP - General Family Medicine 01/18/24 Jacque Watt, CORBIN [address] [place] [id number] 01/18/24 documented as of this encounter
--- NOTE | 2024-09-08 17:01 | EXP.HP ---
History of Present Illness *Admission Date: 09/08/24 *Reason for visit:: Chest pain *History of present illness: Farrah Case is a 69-year-old female with medical history of left hip bursitis, hypertension, hyperlipidemia, GERD, anxiety/depression who presents with acute onset chest pain at 4 AM this morning with radiation to the back. She states it woke her up from sleep and it was quite severe. No radiation of left shoulder, also endorses shortness of breath. Has never had chest pain like this before. No recent changes to medications, non-smoker. Of note, patient states she has been more or less stationary for the past year due to left hip bursitis and even more so over the past few months. Denies fever/chills, lower extremity pain. On arrival, CTA showed right middle lobe pulmonary embolism with RV ratio 1.1. On room air. Vital stable. CBC, CMP otherwise unremarkable. Case discussed with ED provider and decision was made to admit patient for right middle lobe pulmonary embolism with right ventricular strain. [facility] Disclaimer: The information contained in this section may have been updated after the patient was seen, as this information can be updated by other users. 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 Tinnitus, left ear Otalgia, left ear History of cardiac pacemaker Surgical History (Updated 09/08/24 @ 10:53 by Carlee Pedroza RN) Hx of cataract surgery H/O: section History of sleeve gastrectomy History of left mastoidectomy Social History (Updated 09/08/24 @ 10:53 by Carlee Pedroza RN) Smoking Status: Never smoker alcohol intake: never current occupational status: retired Travel in the last 8 weeks?: None Have you lived/traveled outside [place] in past 30 days?: No Contact w/someone who lives/traveled outside [place] past 30 days?: No Exposure to someone with infectious disease in past 14 days?: No Do you have a fever (greater than 100.4 F or 38 C)?: No Have you tested positive for COVID-19?: No Exposed to someone with COVID-19 in past 14 days?: No Do you have a sore throat?: No Do you have a cough?: No Do you have any weakness?: No Do you have any diarrhea?: No Are you experiencing any unusual bleeding?: No Do you have any muscle aches/pain?: No Do you have any abdominal pain?: No Are you experiencing loss of taste or smell?: No Other Medical History Have you received the Flu Vaccine for this season: No Have you received the Pneumonia Vaccine: No Meds Home Medications and Allergies Home Medications ?Medication ?Instructions ?Recorded ?Confirmed ?Type amlodipine 10 mg tablet 10 mg PO HS 09/08/24 09/08/24 History lorazepam 1 mg tablet 1 mg PO TID PRN Anxiety 09/08/24 09/08/24 History pantoprazole 40 mg tablet,delayed 40 mg PO DAILY 09/08/24 09/08/24 History release pravastatin 40 mg tablet 40 mg PO HS 09/08/24 09/08/24 History sertraline 100 mg tablet 100 mg PO HS 09/08/24 09/08/24 History New Prescriptions to Start Prescriptions: Allergies Allergy/AdvReac Type Severity Reaction Status Date / Time Penicillins AdvReac Mild Verified 08/26/24 10:44 Exam Data for Last 24 hours Vital signs and Labs for Last 24 Hours: Temp Pulse Resp BP Pulse Ox O2 Del Method 97.8 F 72 16 126/62 94 L Room Air 09/08/24 12:00 09/08/24 12:00 09/08/24 12:00 09/08/24 12:00 09/08/24 12:00 09/08/24 13:00 Laboratory Results - last 24 hr 09/08/24 06:09: WBC 8.4, RBC 4.69, Hgb 11.4 L, Hct 37.8, MCV 80.6 L, MCH 24.3 L, MCHC 30.2 L, RDW 16.0, Plt Count 343, MPV 9.9, Neut % (Auto) 48.0, Lymph % (Auto) 39.4, [place] % (Auto) 8.9, Eos % (Auto) 2.1, Baso % (Auto) 1.2, Neut # (Auto) 4.1, Lymph # (Auto) 3.3, [place] # (Auto) 0.8, Eos # (Auto) 0.2, Baso # (Auto) 0.1, PT 10.5, INR 0.94, APTT 23.4, D-Dimer 0.90 H, Sodium 141, Potassium 4.2, Chloride 103, Carbon Dioxide 27, Anion Gap 15.2 H, BUN 14, Creatinine 1.00, Estimated Creat Clear 68, Estimated GFR 55 L, Est GFR ( Amer) 67, Glucose 85, Calcium 8.4, Total Bilirubin 0.6, AST 33, ALT 25, Alkaline Phosphatase 79, Troponin I < 0.01, Total Protein 7.5, Albumin 4.3, Globulin 3.2, Albumin/Globulin Ratio 1.3, HCV Ab TRISTAN w/Rflx PCR Qn Negative, HIV Ag/Ab Combo Qual Negative 09/08/24 09:01: Troponin I < 0.01 09/08/24 12:12: Troponin I < 0.01 I & O for Last 24 hours: Intake & Output 09/05/24 09/06/24 09/07/24 09/08/24 23:59 23:59 23:59 23:59 Output Total 200 / 200 Balance -200 / -200 Weight 79.152 kg Constitutional Constitutional: no acute distress and obese *Routine HEENT Exam Head: Present normocephalic Eye: Present EOMI and PERRL ENT: Present mucous membranes moist *Routine Neck Exam Neck: Present supple; Absent lymphadenopathy *Routine Respiratory Exam Respiratory: Present CTA bilaterally *Routine Cardiovascular Exam Cardiovascular: Present RRR *Routine Abdominal Exam Abdominal: Present soft and normoactive bowel sounds; Absent tenderness *Routine Rectal Exam Rectal:: deferred *Routine Genitalia Exam Genitalia:: deferred *Routine Extremities Exam Extremities: Absent cyanosis, clubbing or edema *Routine Skin Exam Skin: Present warm; Absent rash *Routine Neurological Exam Neurological: Present alert and oriented X3 Assessment and Plan *Assessment and plan (1) Right ventricular dysfunction: Status: Acute Category: Medical Code(s): I51.9 - Heart disease, unspecified (2) Pulmonary embolism: Status: Acute Category: Medical Code(s): I26.99 - Other pulmonary embolism without acute cor pulmonale Plan Farrah Case is a 69-year-old female with medical history of left hip bursitis, hypertension, hyperlipidemia, GERD, anxiety/depression who presents with acute onset chest pain at 4 AM this morning with radiation to the back. She states it woke her up from sleep and it was quite severe. No radiation of left shoulder, also endorses shortness of breath. Has never had chest pain like this before. No recent changes to medications, non-smoker. Of note, patient states she has been more or less stationary for the past year due to left hip bursitis and even more so over the past few months. Denies fever/chills, lower extremity pain. On arrival, CTA showed right middle lobe pulmonary embolism with RV ratio 1.1. On room air. Vital stable. CBC, CMP otherwise unremarkable. Case discussed with ED provider and decision was made to admit patient for right middle lobe pulmonary embolism with right ventricular strain. #Right middle lobe pulmonary embolism #RV strain ? Acute onset midsternal chest pain with radiation to the back the morning of presentation. CTA chest revealing RML PE. ? Patient has been more or less stationary for the past year due to left hip bursitis and even more so over the past few months. Non-smoker, not on HRT. No recent medication changes. No recent travel history. ? RV ratio is 1.1 on CTA chest. Remains on room air with stable vitals. Troponins negative, EKG without acute ischemic changes. ? Continue therapeutic Lovenox. Plan to transition to DOAC on discharge. ? Follow-up ECHO in the morning to further evaluate RV strain. ? Cardiology consulted, pending further recommendations. N.p.o. at midnight in case thrombectomy is planned. #Hypertension ? Hold home amlodipine as blood pressure stable. #Anxiety/depression ? Continue home sertraline 100 mg. #GERD ? Continue home PPI. Full code DVT prophylaxis therapeutic Lovenox as above.
--- NOTE | 2024-09-08 17:53 | PC.NURSE ---
patient is a/ox4, remains on RA tolerating well. patient is up ad gael. patient c/o chest discomfort but did not describe it as pain. MD aware. patient c/o headache previously and was treated per APR. VSS. call light within reach no further requests at this time. plan of care ongoing.
[2024-09-08] MEDS: SERTRALINE 100MG TABLET 100 MG PO (20:22)
[2024-09-08] MEDS: PRAVASTATIN 40MG TAB 40 MG PO (20:22)
[2024-09-09] VITALS: PULSE 70
[2024-09-09 04:00] VITALS: BP 126/68; PULSE 60; PULSE 70; RESP 16; TEMP 37; O2SAT 98; BMI 33.1
--- NOTE | 2024-09-09 06:00 | CA_ITS ---
APPROVED REPORT EXAM: Comprehensive 2D, Doppler, and color-flow Echocardiogram Java Scala Developer: Dorcas Mi CRT Ht: 5 ft 2 in Wt: 175lbs BSA: 1.81 BP: 126/62 mmHg Indications: Chest Pain, Hyperlipidemia, Hypertension/HDD; PE 2D Dimensions LA Volume 33.00 mL LA Volume Index 18.23 mL/m2 (M/F) 16-34 M-Mode Dimensions RVDd 1.68 cm (0.9-2.6) LA Diam 2.67 cm (1.9-4.0) LVDd 3.58 cm (3.5-5.7) LVDs 2.36 cm (3.5-5.7) IVSd 3.01 cm (0.6-1.1) PWd 0.86 cm (0.6-1.1) EF (Teich) 64.10% FS 34.10% EDV (Teich) 53.70 mL TAPSE 1.83 (<1.7) ESV (Teich) 19.30 mL LV Diastology E Decel Time 193 (160-240 msec) E/A Ratio 0.61 MED A' 10.40 cm/s LAT A' 11.60 cm/s Aortic Valve AI PHT 564.00 ms AO Peak GR. 5.90 mmHg Mitral Valve MV A Velocity 86.0 (40-130 cm/s) E/A Ratio 0.61 Pulmonary Valve PV Peak Velocity 110.0 (50-150 cm/s) Tricuspid Valve TR P. Velocity 295.00 cm/s RAP Estimate 10.00 mmHg RVSP 44.80 mmHg Left Ventricle The left ventricle is normal size. The left ventricular systolic function is normal. The left ventricular ejection fraction is within the normal range. There is increased LV wall thickness. There is normal LV segmental wall motion. Diastolic function is indeterminate. LVEF is 55%. Right Ventricle The right ventricle is normal size. The right ventricular systolic function is normal. Atria The left atrium size is normal. The right atrium size is normal. There is no Doppler evidence of interatrial shunt. Aortic Valve Aortic valve is mildly thickened. There is no aortic valvular stenosis. Trace aortic regurgitation. Mitral Valve The mitral valve is normal in structure. No evidence of mitral valve stenosis. Trace mitral regurgitation. Tricuspid Valve Tricuspid valve is grossly normal in structure and function. Trace tricuspid regurgitation. There is insufficient TR jet to estimate RVSP. Pulmonic Valve The pulmonary valve is normal in structure. Trace pulmonic regurgitation. Great Vessels The aortic root is normal in size. IVC is normal in size and collapses >50% with inspiration. Pericardium There is no pericardial effusion. Other Information Study Quality: Fair Conclusion Normal biventricular systolic function. No significant valvular stenosis or regurgitation. Electronically signed by : Dione Brown MD 09/09/2024 11:50:26
--- NOTE | 2024-09-09 06:18 | CA_ITS ---
FINAL REPORT CLINICAL HISTORY: PE, HYN, HLD, PACEMAKER FINDINGS: Multiple transverse and longitudinal scans were performed of the femoral popliteal deep venous system, with augmentation and compression maneuvers. Normal phasic flow was noted in the visualized deep venous system. No intraluminal increased echogenicity is noted to suggest thrombus. There is normal compression and augmentation of the venous structures. No abnormal venous collaterals are seen. IMPRESSION: No evidence of deep venous thrombosis of the bilateral lower extremities. Reviewed, Interpreted and Dictated by Ashtyn Roach MD Transcribed by Misty Woo Authenticated and [facility]
[2024-09-09 08:00] VITALS: BP 122/62; PULSE 84; PULSE 90; RESP 16; TEMP 36.7; O2SAT 93
[2024-09-09 08:15] LABS: Hematocrit 35.6 % (37.0-47.0); Hemoglobin 11.1 g/dL (12.2-16.2); Immature Granulocytes % 0.4 %; Mean Corpuscular HGB Conc 31.2 g/dL (31.8-35.4); Mean Corpuscular Hemoglobin 24.7 pg (27.0-31.2); Mean Corpuscular Volume 79.3 fl (81-99); Nucleated Red Blood Cells % 0 %; Platelet Count 317 K/mm3 (142-424); Red Blood Count 4.49 M/mm3 (4.20-5.40); Red Cell Distribution Width-SD 46.0 fL; White Blood Count 7.3 K/mm3 (4.8-10.8)
[2024-09-09 08:18] LABS: Alanine Aminotransferase 20 U/L (12-78); Albumin Level 4.1 g/dl (3.5-5.0); Albumin/Globulin Ratio 1.3 (1.1-1.8); Alkaline Phosphatase 79 U/L (38-126); Anion Gap 13.1 mEq/L (5-15); Aspartate Amino Transferase 31 U/L (14-36); Bilirubin,Total 0.6 mg/dl (0.2-1.3); Blood Urea Nitrogen 10 mg/dl (7-17); Calcium 9.2 mg/dl (8.4-10.2); Carbon Dioxide 26 mmol/L (22.0-30.0); Chloride 103 mmol/L (98-107); Creatinine Clearance Estimated 70 mL/min (50-200); Creatinine,Serum 0.90 mg/dl (0.52-1.04); Estimated Glomerular Filt Rate 62 ml/min (>60); GFR (African American) 76 ML/MIN (>60); Globulin 3.1 g/dL (1.3-3.2); Glucose 128 mg/dl (74-100); Potassium 4.1 mmoL/L (3.5-5.1); Sodium 138 mmol/L (136-145); Total Protein,Serum 7.2 g/dl (6.3-8.2)
[2024-09-09] MEDS: LORATADINE 10MG TABLET 10 MG PO (08:47)
[2024-09-09] MEDS: PANTOPRAZOLE 40MG TABLET 40 MG PO (08:47)
--- NOTE | 2024-09-09 08:58 | EXP.CARD.CON ---
History of Present Illness History of Present Illness Consult date: 09/09/24 Requesting physician: Mauricio Veliz Consult reason: chest pain and shortness of breath Chief complaint: right sided chest pain, SOA Additional Medical History:: 1. Hypertension 2. Hyperlipidemia 3. [employer] pacemaker placed 04/2022 for symptomatic bradycardia 4. Right middle lobe pulmonary embolus, 09/08/2024 A. CTA of the chest showed RV dysfunction of 1.1 B. Echocardiogram 09/09/2024, normal biventricular systolic function with no significant valve disease History of present illness: 69-year-old white female presented to the emergency departmentWith acute onset of chest pain that woke her from sleep rated as 10 out of 10, stabbing and radiating to the back but without tearing sensation. She took a baby aspirin at home with some improvement if she was driving into the ER. On arrival to the ER pain was 3 out of 10. She has not felt well over the last 2 weeks. She does relate left hip discomfort over the last several months with decrease ability to ambulate. ER workup was pertinent for elevated D-dimer and subsequent CT of the chest showing right middle lobe pulmonary embolus. Patient was started on Lovenox therapy and admitted for further evaluation. CTA made mention of RV dysfunction of 1.1 with plans for echocardiogram today. Patient has done well overnight with improvement in her chest discomfort and breathing. She has not required oxygen therapy. She has been kept n.p.o. for possible consideration of pulmonary angiogram and thrombectomy. Vital signs have been stable. [facility] Disclaimer: The information contained in this section may have been updated after the patient was seen, as this information can be updated by other users. Medical History (Updated 09/09/24 @ 13:19 by FRANKI Dover) Hypertension Encounter for pre-operative cardiovascular clearance Anxiety and depression Hyperlipidemia GERD (gastroesophageal reflux disease) Cholesteatoma of left ear Severe hearing loss of left ear Tinnitus, left ear Otalgia, left ear History of cardiac pacemaker Surgical History (Updated 09/08/24 @ 10:53 by Carlee Pedroza RN) Hx of cataract surgery H/O: section History of sleeve gastrectomy History of left mastoidectomy Social History (Updated 09/08/24 @ 10:53 by Carlee Pedroza RN) Smoking Status: Never smoker alcohol intake: never current occupational status: retired Travel in the last 8 weeks?: None Review of Systems Review of Systems Review of systems:: pertinent systems reviewed and negative unless documented below *Cardiovascular Cardiovascular: Reports chest pain and Reports dyspnea on exertion *Respiratory Respiratory: Reports dyspnea on exertion Exam Data for Last 24 hours Vital signs and Labs for Last 24 Hours: Temp Pulse Resp BP Pulse Ox O2 Del Method 98.6 F 70 16 126/68 98 Room Air 09/09/24 04:00 09/09/24 04:00 09/09/24 04:00 09/09/24 04:00 09/09/24 04:00 09/09/24 06:34 Laboratory Results - last 24 hr 09/08/24 09:01: Troponin I < 0.01 09/08/24 12:12: Troponin I < 0.01 09/09/24 07:48: WBC 7.3, RBC 4.49, Hgb 11.1 L, Hct 35.6 L, MCV 79.3 L, MCH 24.7 L, MCHC 31.2 L, RDW 16.0, Plt Count 317, MPV 10.0, Neut % (Auto) 56.6, Lymph % (Auto) 35.7, [place] % (Auto) 4.5, Eos % (Auto) 1.6, Baso % (Auto) 1.2, Neut # (Auto) 4.2, Lymph # (Auto) 2.6, [place] # (Auto) 0.3, Eos # (Auto) 0.1, Baso # (Auto) 0.1, Sodium 138, Potassium 4.1, Chloride 103, Carbon Dioxide 26, Anion Gap 13.1, BUN 10 D, Creatinine 0.90, Estimated Creat Clear 70, Estimated GFR 62, Est GFR ( Amer) 76, Glucose 128 H, Calcium 9.2, Total Bilirubin 0.6, AST 31, ALT 20, Alkaline Phosphatase 79, Total Protein 7.2, Albumin 4.1, Globulin 3.1, Albumin/Globulin Ratio 1.3 I & O for Last 24 hours: Intake & Output 09/06/24 09/07/24 09/08/24 09/09/24 11:59 11:59 11:59 11:59 Intake Total 340 / 340 Output Total 200 / 200 Balance 140 / 140 Weight 174 lb 8 oz 180 lb 2 oz Constitutional Constitutional: no acute distress *Routine Respiratory Exam Respiratory: Present CTA bilaterally; Absent rhonchi or wheezes *Routine Cardiovascular Exam Cardiovascular: Present RRR; Absent murmur, gallop or rubs *Routine Extremities Exam Extremities: Present pulses intact; Absent edema *Routine Neurological Exam Neurological: Present alert, oriented X3 and CN II-XII intact Meds Home Medications and Allergies Home Medications ?Medication ?Instructions ?Recorded ?Confirmed ?Type amlodipine 10 mg tablet 10 mg PO HS 09/08/24 09/08/24 History lorazepam 1 mg tablet 1 mg PO TID PRN Anxiety 09/08/24 09/08/24 History pantoprazole 40 mg tablet,delayed 40 mg PO DAILY 09/08/24 09/08/24 History release pravastatin 40 mg tablet 40 mg PO HS 09/08/24 09/08/24 History sertraline 100 mg tablet 100 mg PO HS 09/08/24 09/08/24 History rivaroxaban 15 mg (42)-20 mg (9) See Rx Instructions PO .COMPLEX 09/09/24 Rx tablets in a starter pack (Xarelto #51 tabs DVT-PE Treatment 30-Day Starter) New Prescriptions to Start Prescriptions: rivaroxaban [Xarelto DVT-PE Treat 30d Start] Tara Monae Allergies Allergy/AdvReac Type Severity Reaction Status Date / Time Penicillins AdvReac Mild Verified 08/26/24 10:44 Assessment and Plan *Assessment and plan (1) Pulmonary embolism: Status: Acute Qualifiers: Pulmonary embolism type: single subsegmental (without acute cor pulmonale) Qualified Code(s): I26.93 - Single subsegmental thrombotic pulmonary embolism without acute cor pulmonale Category: Medical Code(s): I26.99 - Other pulmonary embolism without acute cor pulmonale (2) Right ventricular dysfunction: Status: Acute Category: Medical Code(s): I51.9 - Heart disease, unspecified (3) Greater trochanteric bursitis of left hip: Status: Acute Category: Medical Code(s): M70.62 - Trochanteric bursitis, left hip (4) History of cardiac pacemaker: Status: Acute Category: Medical Code(s): Z95.0 - Presence of cardiac pacemaker (5) Hypertension: Status: Acute Qualifiers: Hypertension type: primary hypertension Qualified Code(s): I10 - Essential (primary) hypertension Category: Medical Code(s): I10 - Essential (primary) hypertension Plan 1. PE, RML with RV strain. [place] likely due to sedentary lifestyle but unclear. -normal troponins -vitals stable -continue lovenox and switch to Xarelto prior to discharge -echo pending -likely continue medical therapy since clinically stable. -Lower extremity venous Doppler negative for DVT 2. History of hypertension -Continue amlodipine 3. Pacemaker in situ 4. Left hip greater trochanteric bursitis -Planned steroid injections in the future Echocardiogram shows normal biventricular systolic function without RV enlargement. Since patient has not required any oxygen therapy and vital signs remained stable, we have no plans for pulmonary thrombectomy. Clinically stable for discharge home from cardiac standpoint. Med recommendations: Xarelto 15 mg BID for 21 days then 20 mg daily Pravastatin 40 mg daily Pantoprazole 40 mg daily Hold amlodipine for now and restart with consistent blood pressure readings over 140/90. Follow-up in our office in 1 to 2 weeks. We will consider referral to hematology.
[2024-09-09 10:22] LABS: Magnesium 2.2 mg/dl (1.6-2.3)
[2024-09-09 12:00] VITALS: BP 106/52; PULSE 90; PULSE 91; RESP 16; TEMP 36.8; O2SAT 94
--- NOTE | 2024-09-09 13:27 | EXP.DC.SUM ---
General Admission date:: 09/08/24 Discharge date: 09/09/24 HPI HPI HPI: Farrah Case is a 69-year-old female with medical history of left hip bursitis, hypertension, hyperlipidemia, GERD, anxiety/depression who presents with acute onset chest pain at 4 AM this morning with radiation to the back. She states it woke her up from sleep and it was quite severe. No radiation of left shoulder, also endorses shortness of breath. Has never had chest pain like this before. No recent changes to medications, non-smoker. Of note, patient states she has been more or less stationary for the past year due to left hip bursitis and even more so over the past few months. Denies fever/chills, lower extremity pain. On arrival, CTA showed right middle lobe pulmonary embolism with RV ratio 1.1. On room air. Vital stable. CBC, CMP otherwise unremarkable. Case discussed with ED provider and decision was made to admit patient for right middle lobe pulmonary embolism with right ventricular strain. Hospital Course Hospital Course Hospital Course: Farrah Case is a 69-year-old female with medical history of left hip bursitis, hypertension, hyperlipidemia, GERD, anxiety/depression who presents with acute onset chest pain at 4 AM yesterday morning with radiation to the back. She states it woke her up from sleep and it was quite severe. No radiation of left shoulder, also endorses shortness of breath. Has never had chest pain like this before. No recent changes to medications, non-smoker. Of note, patient states she has been more or less stationary for the past year due to left hip bursitis and even more so over the past few months. Denies fever/chills, lower extremity pain. On arrival, CTA showed right middle lobe pulmonary embolism with RV ratio 1.1. On room air. Vital stable. CBC, CMP otherwise unremarkable. Case discussed with ED provider and decision was made to admit patient for right middle lobe pulmonary embolism with right ventricular strain. #Right middle lobe pulmonary embolism #RV strain ?Patient assessment reveals chest pain improvement. Patient states that she does have intermittent feelings of shortness of breath. O2 saturation has remained above 94% on room air during admission. Patient states that this could also be due to her anxiety. She does take lorazepam 1 mg 3 times daily as needed for anxiety. She states that she received a dose last night when she felt short of breath and it improved her symptoms. ? Acute onset midsternal chest pain with radiation to the back the morning of presentation. CTA chest revealing RML PE. ?Echo performed today shows normal biventricular systolic function, no significant valvular stenosis or regurgitation, LVEF is 55%. No heart strain noted on echo. ? Patient has been more or less stationary for the past year due to left hip bursitis and even more so over the past few months. Non-smoker, not on HRT. No recent medication changes. No recent travel history. Troponins negative, EKG without acute ischemic changes. ? Patient received Lovenox subcu 1 mg/kg during admission. Will start on Xarelto DVT?PE treatment 30-day pack. ? Cardiology consulted for possible thrombectomy, this was discussed with patient and due to no heart strain was determined to use medication therapy. Patient will follow-up with outpatient cardiology in 1 to 2 weeks. ?Venous Doppler bilaterally, no evidence of DVT noted. #Hypertension ? Continue home medication amlodipine 10 mg daily at discharge. ?Continue pravastatin 40 mg p.o. at bedtime. #Anxiety/depression ? Continue home sertraline 100 mg. ?Continue lorazepam 1 mg 3 times daily as needed for anxiety. #GERD ? Continue home pantoprazole 40 mg daily. Total time spent on discharge 37 minutes in counseling, documentation, chart review, and direct care with patient. Exam Data for Last 24 hours Vital signs and Labs for Last 24 Hours: Temp Pulse Resp BP Pulse Ox O2 Del Method 98.3 F 91 H 16 106/52 L 94 L Room Air 09/09/24 12:00 09/09/24 12:00 09/09/24 12:00 09/09/24 12:00 09/09/24 12:09/09/24 12:00 Laboratory Results - last 24 hr 09/09/24 07:38: Magnesium 2.2 09/09/24 07:48: WBC 7.3, RBC 4.49, Hgb 11.1 L, Hct 35.6 L, MCV 79.3 L, MCH 24.7 L, MCHC 31.2 L, RDW 16.0, Plt Count 317, MPV 10.0, Neut % (Auto) 56.6, Lymph % (Auto) 35.7, [place] % (Auto) 4.5, Eos % (Auto) 1.6, Baso % (Auto) 1.2, Neut # (Auto) 4.2, Lymph # (Auto) 2.6, [place] # (Auto) 0.3, Eos # (Auto) 0.1, Baso # (Auto) 0.1, Sodium 138, Potassium 4.1, Chloride 103, Carbon Dioxide 26, Anion Gap 13.1, BUN 10 D, Creatinine 0.90, Estimated Creat Clear 70, Estimated GFR 62, Est GFR ( Amer) 76, Glucose 128 H, Calcium 9.2, Total Bilirubin 0.6, AST 31, ALT 20, Alkaline Phosphatase 79, Total Protein 7.2, Albumin 4.1, Globulin 3.1, Albumin/Globulin Ratio 1.3 I & O for Last 24 hours: Intake & Output 09/06/24 09/07/24 09/08/24 09/09/24 23:59 23:59 23:59 23:59 Intake Total 100 / 340 480 / 480 Output Total 1100 / 1100 600 / 600 Balance -1000 / -760 -120 / -120 Weight 79.152 kg 81.703 kg Constitutional Constitutional: no acute distress, obese and cooperative *Routine HEENT Exam Head: Present normocephalic Eye: Present EOMI and PERRL ENT: Present mucous membranes moist *Routine Neck Exam Neck: Present supple and full ROM; Absent JVD *Routine Respiratory Exam Respiratory: Present CTA bilaterally, able to speak in complete sentences and symmetric chest movement *Routine Cardiovascular Exam Cardiovascular: Present RRR; Absent murmur *Routine Abdominal Exam Abdominal: Present soft and normoactive bowel sounds; Absent tenderness *Routine Rectal Exam Patient deferred: visual exam *Routine Exam Patient deferred: external exam *Routine Extremities Exam Extremities: Present full ROM and normal capillary refill; Absent edema *Routine Skin Exam Skin: Present intact and dry *Routine Neurological Exam Neurological: Present alert, oriented X3 and normal speech Results Data Completed and Pending Labs on day of discharge: Labs from last 24 hours 09/09/24 09/09/24 07:48 07:38 WBC 7.3 RBC 4.49 Hgb 11.1 L Hct 35.6 L MCV 79.3 L MCH 24.7 L MCHC 31.2 L RDW 16.0 Plt Count 317 MPV 10.0 Neut % (Auto) 56.6 Lymph % (Auto) 35.7 [place] % (Auto) 4.5 Eos % (Auto) 1.6 Baso % (Auto) 1.2 Neut # (Auto) 4.2 Lymph # (Auto) 2.6 [place] # (Auto) 0.3 Eos # (Auto) 0.1 Baso # (Auto) 0.1 Sodium 138 Potassium 4.1 Chloride 103 Carbon Dioxide 26 Anion Gap 13.1 BUN 10 D Creatinine 0.90 Estimated Creat Clear 70 Estimated GFR 62 Est GFR ( Amer) 76 Glucose 128 H Calcium 9.2 Magnesium 2.2 Total Bilirubin 0.6 AST 31 ALT 20 Alkaline Phosphatase 79 Total Protein 7.2 Albumin 4.1 Globulin 3.1 Albumin/Globulin Ratio 1.3 DS: Diagnosis Discharge Diagnosis (1) Pulmonary embolism: Status: Acute Code(s): I26.99 - Other pulmonary embolism without acute cor pulmonale Qualifiers: Pulmonary embolism type: single subsegmental (without acute cor pulmonale) Qualified Code(s): I26.93 - Single subsegmental thrombotic pulmonary embolism without acute cor pulmonale (2) Right ventricular dysfunction: Status: Acute Code(s): I51.9 - Heart disease, unspecified (3) Greater trochanteric bursitis of left hip: Status: Acute Code(s): M70.62 - Trochanteric bursitis, left hip (4) History of cardiac pacemaker: Status: Acute Code(s): Z95.0 - Presence of cardiac pacemaker (5) Hypertension: Status: Acute Code(s): I10 - Essential (primary) hypertension Qualifiers: Hypertension type: primary hypertension Qualified Code(s): I10 - Essential (primary) hypertension (6) GERD (gastroesophageal reflux disease): Status: Acute Code(s): K21.9 - Gastro-esophageal reflux disease without esophagitis (7) Anxiety and depression: Status: Acute Code(s): F41.9 - Anxiety disorder, unspecified; F32.A - Depression, unspecified Meds Home Medications and Allergies Home Medications ?Medication ?Instructions ?Recorded ?Confirmed ?Type amlodipine 10 mg tablet 10 mg PO HS 09/08/24 09/08/24 History lorazepam 1 mg tablet 1 mg PO TID PRN Anxiety 09/08/24 09/08/24 History pantoprazole 40 mg tablet,delayed 40 mg PO DAILY 09/08/24 09/08/24 History release pravastatin 40 mg tablet 40 mg PO HS 09/08/24 09/08/24 History sertraline 100 mg tablet 100 mg PO HS 09/08/24 09/08/24 History rivaroxaban 15 mg (42)-20 mg (9) See Rx Instructions PO .COMPLEX 09/09/24 Rx tablets in a starter pack (Xarelto #51 tabs DVT-PE Treatment 30-Day Starter) New Prescriptions to Start Prescriptions: rivaroxaban [Xarelto DVT-PE Treat 30d Start] Tara Monae Allergies Allergy/AdvReac Type Severity Reaction Status Date / Time Penicillins AdvReac Mild Verified 08/26/24 10:44 Discharge Plan Disposition Patient Disposition: Home, Self-Care Condition: Good Discharge Order Discharge Orders: Discharge Order (Routine); Ordered 09/09/24 Ordered By: Tara Monae Follow up Plan Follow up with: Souleymane Monae PA [Physician Pbx Supervisor, Cardiology] - 09/23/24 2:00 pm Eros Tucker MD [Staff Physician, Internal Medicine] - 09/16/24 1:00 pm Prescriptions/Medication Reconciliation: New Xarelto DVT-PE Treat 30d Start 15 mg (42)- 20 mg (9) tablets,dose pack See Rx Instructions .ROUTE .COMPLEX Qty: 51 0RF Rx Instructions: take one-15 mg tablet twice daily for 21 days, then one-20 mg tablet once daily; must take with meal/food Continued lorazepam 1 mg Tablet 1 mg PO TID PRN (Reason: Anxiety) pravastatin 40 mg tablet 40 mg PO HS sertraline 100 mg tablet 100 mg PO HS amlodipine 10 mg tablet 10 mg PO HS pantoprazole 40 mg tablet,delayed release (DR/EC) 40 mg PO DAILY Problem Reconciliation Problems Reviewed?: Yes Patient Discharge Instructions ACTIVITY: Continue current activity DIET: continue same diet Patient Instructions: DI for Pulmonary Embolism Print Language: Bots[place]an Providers Primary Care Provider: Provider,Referral Admit Provider: Mauricio Veliz Attending Provider: Mauricio Veliz
--- NOTE | 2024-09-10 10:53 | SW/DCPLANNER ---
Addendum entered by Joslyn Dumont RN 09/10/24 10:57: Called and spoke with patient related to breathing. Patient is monitoring oxygen saturation and states it is staying in high 90s. She is just anxious about it. It feels the same as it did in the hospital. We discussed seeking medical treatment if O2 sat starts to drop. 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
== END 2024-09-09 14:55 | disposition home or self-care (01) ==
LOC: ER 08:38 → 2ND 09:08
PROVIDERS: Emergency Medicine; Admitting Provider Student in an Organized Health Care Education/Training Program; Emergency Provider Emergency Medicine; Visit Provider Student in an Organized Health Care Education/Training Program
DX: I26.93 Single subsegmental thrombotic pulmonary embolism without acute cor pulmonale (principal); I11.9 Hypertensive heart disease without heart failure; K21.9 Gastro-esophageal reflux disease without esophagitis; M70.62 Trochanteric bursitis, left hip; F41.9 Anxiety disorder, unspecified; F32.A Depression, unspecified; E66.9 Obesity, unspecified; E78.5 Hyperlipidemia, unspecified; Z88.1 Allergy status to other antibiotic agents; Z68.33 Body mass index [BMI] 33.0-33.9, adult; Z95.0 Presence of cardiac pacemaker; Z79.899 Other long term (current) drug therapy; Z87.891 Personal history of nicotine dependence
CPT/HCPCS: 36415; 71045; 71275; 80053; 83735; 84484; 85025; 85378; 85610; 85730; 86803; 87389; 93005; 93306; 93970; 99285; G0378; J1650; Q9967

== ENCOUNTER 2024-10-02 11:22 | Outpatient (CLI) | payer MEDICARE, SELFPAY ==
--- OUTSIDE RECORDS SUMMARY | 2024-09-12 13:30 | XMS_ITS | Encounter Summary ---
Author Organization [place] [address] Care Team Providers Care Electrical Machine Builder Name Role Phone Unavailable Primary Care Provider Unavailabl e Reason for Visit * Reason Comments New Patient Encounter Details Date Type Department Care Team (Late st Contact Info) Description 09/12/2024 1:30 PM EDT Office Visit [facility] [address] [place] [address] Dawit Wright MD [address] [place] [address] [place] [address] Status post laparoscopic sleeve gastrectomy (Primary Dx) Social History Tobacco Use Types Packs/Day Years Used Date Smoking Tobacco: Former Cigarettes 2011 Smokeless Tobacco: Never Tobacco Cessation:Counseling Given: Not Answered Alcohol Use Standard Drinks/Week Comments Not Currently 0 (1 standard drink = 0.6 oz pur e alcohol) Comments Unknown Sex and Gender Information Value Date Recorded Sex Assigned at Not on file Legal Sex Female 1:32 PM EDT Gender Identity Not on file Sexual Orientation Not on file documented as of this encounter Last Filed Vital Signs Vital Sign Reading Time Taken Comments Blood Pressure 122/84 09/12/2024 1:40 PM EDT Pulse - - Temperature - - Respiratory Rate - - Oxygen Saturation - - Inhaled Oxygen Concentration - - Weight 80.5 kg (177 lb 6.4 oz) 09/12/2024 1:40 P M EDT Height 157.5 cm (5' 2 ) 09/12/2024 1:40 PM EDT Body Mass Index 32.45 09/12/2024 1:40 PM EDT documented in this encounter Progress Notes * Dawit Wright MD - 09/12/2024 1:30 PM EDT HISTORY & PHYSICAL Chief Complaint: Why is patient being seen today? Initial H&P establish care History of Present Illness: 69-year-old female, status post sleeve gastrectomy at an outside hospital in the remote past. Doingwell overall but with some recent weight regain. Interested to establish care. Has had good habits so far. How long have been overweight? Two years after surgery, 20 years prior to surgery Highest adult weight? 210 Lowest adult weight? 130/125 How does carrying extra weight impact your daily activities? Out of breath, no energy, What triggers weight gain for you? Problems with hip/ not moving around, retired, moved, Unsuccessful weight loss attempts. Past Weight Loss attempts: Weight Watchers, Medications, Diet & Exercise, Meal Replacements, Liquid Diet, bariatric surgery Patient is of descent? no Past Medical History: Allergies Allergen Reactions Penicillins Other (See Comments) Doesn't know. Was told when she was young not to take them Outpatient Medications Marked as Taking for the 09/12/24 encounter (Office Visit) with Luis Wright MD Medication Sig Dispense Refill amLODIPine (NORVASC) 10 mg Oral Tablet Take 10 mg by mouth daily. LORazepam (ATIVAN) 1 mg Oral Tablet 1 mg. pantoprazole (PROTONIX) 40 mg Oral Tablet, Delayed Release (E.C.) take 1 tablet by mouth once dailyfor 90 days pravastatin (PRAVACHOL) 40 mg Oral Tablet take 1 tablet by mouth once daily for 90 days sertraline (ZOLOFT) 100 mg Oral Tablet take 1 tablet by mouth once daily for 90 days XARELTO DVT-PE TREAT 30D START 15 mg (42)- 20 mg (9) Oral Tablets, Dose Pack TAKE ACCORDING TO PACKAGE INSTRUCTIONS WITH FOOD OR meal Past Surgical History: Procedure Laterality Date SECTION x2 GASTRIC BYPASS SURGERY PACEMAKER INSERTION Family History Problem Relation Age of Onset Alzheimer's Disease Mother Heart Disease Father High Blood Pressure Sister High Blood Pressure Sister High Blood Pressure Sister Social History Socioeconomic History Marital status: Spouse name: Not on file Number of children: Not on file Years of education: Not on file Highest education level: Not on file Occupational History Not on file Tobacco Use Smoking status: Former Current packs/day: 0.00 Types: Cigarettes Start date: 1973 Quit date: 2011 Years since quittin.5 Smokeless tobacco: Never Vaping Use Vaping status: Never Used Substance and Sexual Activity Alcohol use: Not Currently Drug use: Never Sexual activity: Not on file Other Topics Concern Not on file Social History Narrative Not on file Social Drivers of Health Financial Resource Strain: Not on file Food Insecurity: Not on file Transportation Needs: Not on file Physical Activity: Not on file Stress: Not on file Social Connections: Not on file Intimate Partner Violence: Not on file Housing Stability: Not on file Past Medical History: Diagnosis Date Sleep apnea Respiratory Problems: Sleep Apnea Bleeding Tendencies: Anticoagulation Therapy DVT: Denies Cardiovascular Disease: has a pacemaker Previous Transfusion / Complications: Denies Previous Anesthetics: Yes no problems Do you have any of the following medical conditions? Diabetes: No Using Insulin? N/A Oral Meds? N/A Diet Controlled Only (no medications or insulin) ? N/A Hypertension:yes, B/P readings BP Readings from Last 3 Encounters: 09/12/24 122/84 Hyperlipidemia: yes No results found for: CHOLESTEROL No results found for: HDL No results found for: LDLCALC No results found for: TRIG No results found for: CHOLHDL Sleep Apnea: - yes If you have sleep apnea, are you prescribed CPap or BiPap? yes Are you wearing CPap or BiPap? yes Do you have GERD? yes Do you take medication to control stomach acid?: - yes If so, which one? Pantoprazole Review of Systems Constitutional: Positive for malaise/fatigue. Negative for chills and fever. HENT: Negative for congestion, nosebleeds and sore throat. Respiratory: Negative for cough, shortness of breath and wheezing. Cardiovascular: Positive for chest pain. Negative for palpitations and leg swelling. Gastrointestinal: Negative for abdominal pain, constipation, diarrhea, heartburn, nausea and vomiting. Musculoskeletal: Positive for joint pain. Negative for back pain, myalgias and neck pain. Skin: Negative for itching and rash. Neurological: Negative for dizziness. Endo/Heme/Allergies: Bruises/bleeds easily. Psychiatric/Behavioral: The patient is not nervous/anxious. PHYSICAL EXAM: Vitals: 09/12/24 1340 BP: 122/84 Weight: 177 lb 6.4 oz (80.5 kg) Height: 5' 2 (157.5 cm) Body mass index is 32.45 kg/m??. Wt Readings from Last 3 Encounters: 09/12/24 177 lb 6.4 oz (80.5 kg) Labs: No results found for: CBC , LABALBU General: Awake, alert, NAD. Comfortable at rest. Eyes : Sclera clear, Conjunctivae pink, Lids Normal, Pupils are equal and reactive to light, EOM intact. Nose: No drainage or exudate, nares patent. Throat: Uvula is midline, oropharynx is pink and moist, mucous membranes are normal. Teeth: Three Affiliated dentition in good repair Heart : Normal rate and rhythm, S1S2, No MRG, No Carotid Bruit. No JVD Lungs: Respirations unlabored. Breath sounds clear bilaterally without wheezes. Good exchange all ortega. Abdomen: Soft and nondistended. Bowel sounds present. No HSM or mass. Extremities: No edema Musculoskeletal: Normal ROM of extremities without limitation. No spinal tenderness. Neuro: Cranial Nerves II - XII grossly intact. Gait steady. Bench Molder equal and strong. Motor strength equal upper and lower. Genitalia : Deferred Problem List: Patient Active Problem List Diagnosis Status post laparoscopic sleeve gastrectomy CURRENT ASSESSMENT / DIAGNOSES: Diagnoses and all orders for this visit: Status post laparoscopic sleeve gastrectomy Plan: Med weight loss referral documented in this encounter Plan of Treatment Not on file documented as of this encounter Visit Diagnoses Diagnosis Status post laparoscopic sleeve gastrectomy- Primary documented in this encounter Historical Medications * This list may reflect changes made after this encounter. XARELTO DVT-PE TREAT 30D START 15 mg (42)- 20 mg (9) Oral Tablets, Dose Pack TAKE ACCORDING TO PACKAGE INSTRUCTIONS WITH FOOD OR meal 09/09/2024 pantoprazole (PROTONIX) 40 mg Oral Tablet, Delayed Release (E.C.) take 1 tablet by mouth once daily for 90 days 08/08/2024 amLODIPine (NORVASC) 10 mg Oral Tablet Take 10 mg by mouth daily. 09/01/2024 sertraline (ZOLOFT) 100 mg Oral Tablet take 1 tablet by mouth once daily for 90 days pravastatin (PRAVACHOL) 40 mg Oral Tablet take 1 tablet by mouth once daily for 90 days LORazepam (ATIVAN) 1 mg Oral Tablet 1 mg. 12/28/2023 added in this encounter
--- OUTSIDE RECORDS SUMMARY | 2024-10-02 11:25 | XMS_ITS | Encounter Summary ---
Author Organization [facility] [place] [address] Care Team Providers Care Child Welfare Worker Name Role Phone Unavailable Primary Care Provider Unavailabl e Reason for Visit * Reason Onset Date Comments Other 09/11/2024 Ins verification Encounter Details Date Type Department Care Team (Late st Contact Info) Description 09/11/2024 Telephone [facility] [address] [place] [address] Marta Razo RMA Other (Ins verification ) Social History Tobacco Use Types Packs/Day Years Used Date Smoking Tobacco: Never Assessed Comments Unknown Sex and Gender Information Value Date Recorded Sex Assigned at Not on file Legal Sex Female 1:32 PM EDT Gender Identity Not on file Sexual Orientation Not on file documented as of this encounter Miscellaneous Notes * Telephone Encounter - Marta Razo RMA - 09/11/2024 3:04 PM EDT INSURANCE CRITERIA Insurance Carrier: [facility] Medicare Diet Trial Required? yes Number of Months: 3 Consecutive Visits Required: yes Office visits covered for Obesity / Morbid Obesity? yes Documented History of Obesity Required? no Number of years Needs PCP Letter of Recommendation? no Needs PCP Surgical Clearance? no Needs Cardiac Clearance? no Needs Pulmonology Clearance? no Needs TSH no Needs H. Pylori test? no Smoking Cessation: 2 months unless specifies otherwise Required to lose certain # of pounds prior to surgery? Yes How much? Additional Criteria (i.e., Must have specific BMI to cover procedure, restricted procedures, etc. )Must have one co-morbid RD Coverage: no [facility] Required? no IOQ Required? no Insurance has been verified? yes Call Reference # documented in this encounter Plan of Treatment Not on file documented as of this encounter Visit Diagnoses Not on filedocumented in this encounter
--- OUTSIDE RECORDS SUMMARY | 2024-10-02 11:25 | XMS_ITS | Clinical Summary ---
Author Organization [facility] Address [address] [id number] Care Team Providers Care Income Tax Return Preparer Name Role Phone Eros Tucker MD Primary Care Provider Shani Watt Jacque Roselyn [employer] Unavailable [phone] Allergies Active Allergy Reactions Criticality Noted [...] [facility]-Depression Screening 1957 [facility]-Hepatitis C Screening 1957 [facility]-/Child/Adol SDOH Screenings 1957 [facility]- SDOH Screenings 1975 [facility]-Adult SDOH Screenings 1975 [facility]-DTaP,Tdap,and Td Vaccine s (1 - Tdap) 1976 CT Colonography 2002 Colonoscopy 2002 FIT-DNA 2002 FIT 2002 FOBT 2002 Sigmoidoscopy 2002 [facility]-Colorectal Cancer Screening 2002 [facility]-Breast Cancer Screening 2007 [facility]-Pneumococcal Vaccine: 50 + Years (1 of 1 - PCV) 2007 [facility]-Zoster Vaccines (1 of 2) 2007 [id number] Vaccine (1 - 20 24-25 season) 2023 [...] complete this topic Insurance [employer] Care Teams Income Tax Return Preparer Relationship Specialty Start Date End Date Eros Tucker MD PCP - General Family Medicine 01/18/24 Jacque Watt APRN [address] [place] [address] [place] [id number] 01/18/24
--- OUTSIDE RECORDS SUMMARY | 2024-10-02 11:25 | XMS_ITS | Clinical Summary ---
Author Organization [facility] Address [address] [place] [phone] Phone Care Team Providers Care Body Make Up Artist Name Role Phone Unavailable Primary Care Provider Unavailabl e Allergies Active Allergy Reactions Criticality Noted Date Comments Penicillins Other (See Comments) 09/12/2024 Doesn't know. Was told when she was young not to take them Medications LORazepam (ATIVAN) 1 mg Oral Tablet 1 mg. 4 Active pravastatin (PRAVACHOL) 40 mg Oral Tablet take 1 tablet by mouth once daily for 90 days Active sertraline (ZOLOFT) 100 mg Oral Tablet take 1 tablet by mouth once daily for 90 days Active amLODIPine (NORVASC) 10 mg Oral Tablet Take 10 mg by mouth daily. 5 Active pantoprazole (PROTONIX) 40 mg Oral Tablet, Delayed Release (E.C.) take 1 tablet by mouth once daily for 90 days 5 Active XARELTO DVT-PE TREAT 30D START 15 mg (42)- 20 mg (9) Oral Tablets, Dose Pack TAKE ACCORDING TO PACKAGE INSTRUCTIONS WITH FOOD OR meal 5 Active Active Problems Problem Noted Date Diagnosed Date Status post laparoscopic sleeve gastrectomy 08/28 Encounters Date Type Department Care Team Description 09/12/2024 1:30 PM EDT Office Visit [facility] [address] [place] [address] Dawit Wright MD Status post laparoscopic sleeve gastrectomy (Primary Dx) 09/11/2024 Telephone [facility] [address] [place] [address] Dungmay DAVID Alvarez Other (Ins verification ) from Last 3 Months Surgical History Surgery Date Site/Laterality Comments PACEMAKER INSERTION GASTRIC BYPASS SURGERY SECTION x2 Medical History Medical History Date Comments Sleep apnea Family History Medical History Relation Name Comments Heart Disease Father Alzheimer's Disease Mother High Blood Pressure Sister 1 High Blood Pressure Sister 2 High Blood Pressure Sister 3 Relation Name Status Comments Father Mother Sister 1 Alive Sister 2 Alive Sister 3 Alive Social History Tobacco Use Types Packs/Day Years [...] on file Sexual Orientation Not on file Obstetrics History Last Filed Vital Signs Vital Sign Reading [...] Mass Index 32.45 09/12/2024 1:40 PM EDT Plan of Treatment Health Maintenance Due Date Last Done Comments Wellness Exam Medicare 1958 Hepatitis C Screening 1975 DTaP/TDaP/Td (1 [...] age to complete this topic Insurance [employer] MEDICARE PPO REPLACE MR
[2024-10-02 12:01] LABS: Hematocrit 34.7 % (37.0-47.0); Hemoglobin 10.6 g/dL (12.2-16.2); Immature Granulocytes % 0.3 %; Mean Corpuscular HGB Conc 30.5 g/dL (31.8-35.4); Mean Corpuscular Hemoglobin 24.5 pg (27.0-31.2); Mean Corpuscular Volume 80.1 fl (81-99); Nucleated Red Blood Cells % 0 %; Platelet Count 346 K/mm3 (142-424); Red Blood Count 4.33 M/mm3 (4.20-5.40); Red Cell Distribution Width-SD 44.8 fL; White Blood Count 9.1 K/mm3 (4.8-10.8)
[2024-10-02 12:33] LABS: Albumin Level 4.5 g/dl (3.5-5.0); Chloride 105 mmol/L (98-107); Potassium 3.9 mmoL/L (3.5-5.1); Sodium 137 mmol/L (136-145)
[2024-10-02 12:36] LABS: Alanine Aminotransferase 18 U/L (12-78); Alkaline Phosphatase 83 U/L (38-126); Anion Gap 8.9 mEq/L (5-15); Aspartate Amino Transferase 30 U/L (14-36); Bilirubin,Direct 0.1 mg/dl (0.0-0.4); Bilirubin,Indirect 0.1 mg/dL (0.0-0.9); Bilirubin,Total 0.2 mg/dl (0.2-1.3); Bilirubin,Unconjugated 0.1 mg/dL (0.0-1.1); Blood Urea Nitrogen 16 mg/dl (7-17); Calcium 8.9 mg/dl (8.4-10.2); Carbon Dioxide 27 mmol/L (22.0-30.0); Cholesterol 186 mg/dl (140-200); Creatinine,Serum 0.90 mg/dl (0.52-1.04); Estimated Glomerular Filt Rate 62 ml/min (>60); GFR (African American) 76 ML/MIN (>60); Glucose 70 mg/dl (74-100); Magnesium 2.4 mg/dl (1.6-2.3); Total Protein,Serum 7.2 g/dl (6.3-8.2); Triglycerides 181 mg/dl (30-150)
[2024-10-02 12:37] LABS: HDL Cholesterol 75 mg/dl (40-60)
[2024-10-02 12:54] LABS: Free T4 (Free Thyroxine) 1.24 ng/dl (0.78-2.19)
[2024-10-02 13:07] LABS: Thyroid Stimulating Hormone 0.69 uIU/mL (0.465-4.68)
[2024-10-02 14:00] LABS: Iron 49 ug/dL (37-170)
[2024-10-02 14:10] LABS: Total Iron Binding Capacity 378 ug/dL (265-497)
[2024-10-02 14:35] LABS: Ferritin 6.30 ng/ml (11.1-264)
[2024-10-03 16:40] LABS: Anti-Cardio Antibody IgM 16 MPL U/mL (0-12); Anti-Cardiolipin Antibody IgG <9 GPL U/mL (0-14); Beta-2 Glycoprotein I Ab, IgG <9 (0-20); Beta-2 Glycoprotein I Ab, IgM <9 (0-32)
== END 2024-10-02 23:59 | disposition home or self-care (01) ==
PROVIDERS: Internal Medicine Medical Oncology; PCP Family Medicine; Visit Provider Physician Assistant
DX: I10 Essential (primary) hypertension (principal); I82.622 Acute embolism and thrombosis of deep veins of left upper extremity; K74.60 Unspecified cirrhosis of liver; Z79.01 Long term (current) use of anticoagulants; I26.99 Other pulmonary embolism without acute cor pulmonale
CPT/HCPCS: 80048; 80061; 80076; 81240; 81241; 82728; 83540; 83550; 83735; 84439; 84443; 85025; 85300; 85301; 85302; 85306; 86146; 86147

== ENCOUNTER 2024-11-28 09:20 | Outpatient (CLI) | payer MEDICARE, SELFPAY ==
--- OUTSIDE RECORDS SUMMARY | 2024-11-28 09:23 | XMS_ITS | Clinical Summary ---
Author Organization 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
--- OUTSIDE RECORDS SUMMARY | 2024-11-28 09:23 | XMS_ITS | Clinical Summary ---
Author Organization [facility] Address [address] [id number] Care Team Providers Care Web Press Operator Assistant Name Role Phone Unavailable Primary Care Provider Unavailabl e Social History Tobacco Use Types Packs/Day Years Used Date Smoking Tobacco: Never Assessed Comments Unknown Sex and Gender Information Value Date Recorded Sex Assigned at Not on file Legal Sex Female 1:27 PM EDT Gender Identity Not on file Sexual Orientation Not on file Plan of Treatment Upcoming Encounters Date Type Department Care Team (Late st Contact Info) Description 01/21/2025 1:00 PM EST Appointment [address] [address] Health Maintenance Due Date Last Done Comments ANNUAL WELLNESS VISIT 1955 DXA SCAN 1957 HEPATITIS C SCREENING 1957 TDAP/TD VACCINES (1 - Tdap) 1976 MAMMOGRAM 1997 COLOGUARD 2002 COLON CANCER SCREENING 5 YEAR SIGMOIDOSCOPY 2002 COLONOSCOPY [address] S[address]ENING 2002 CT COLONOGRAPHY 2002 FECAL OCCULT BLOOD TEST 2002 FIT Testing (1 year) 2002 Pneumococcal Vaccine 50+ (1 of 1 - PCV) 2007 ZOSTER VACCINE (1 of 2) 2007 INFLUENZA VACCINE 09/27/2024 COVID-19 Vaccine ( season) 2024 Insurance [employer] MED[employer]ARE ADVANTAGE PPO Member Subscriber Plan / Payer (Ef fective 2024-Present) Name:Farrah Davis Relation to Subscriber:Self Name:Farrah Davis Payer ID:[id number] ([facility]) Type:Not on file Address: [facility] [id number] [phone]
[2024-11-28 09:46] LABS: Hematocrit 40.4 % (37.0-47.0); Hemoglobin 13.0 g/dL (12.2-16.2); Immature Granulocytes % 0.6 %; Mean Corpuscular HGB Conc 32.2 g/dL (31.8-35.4); Mean Corpuscular Hemoglobin 26.8 pg (27.0-31.2); Mean Corpuscular Volume 83.3 fl (81-99); Nucleated Red Blood Cells % 0 %; Platelet Count 279 K/mm3 (142-424); Red Blood Count 4.85 M/mm3 (4.20-5.40); Red Cell Distribution Width-SD 53.0 fL; White Blood Count 6.4 K/mm3 (4.8-10.8)
[2024-11-28 11:10] LABS: Occult Blood,Stool Negative (Negative)
[2024-11-28 17:26] LABS: Iron 114 ug/dL (37-170)
[2024-11-28 17:39] LABS: Total Iron Binding Capacity 313 ug/dL (265-497)
[2024-11-28 18:08] LABS: Ferritin 19.6 ng/ml (11.1-264)
== END 2024-11-28 23:59 | disposition home or self-care (01) ==
LOC: LAB 09:21
PROVIDERS: Internal Medicine Gastroenterology; PCP Family Medicine; Visit Provider Internal Medicine Medical Oncology
DX: D50.9 Iron deficiency anemia, unspecified (principal)
CPT/HCPCS: 36415; 82272; 82728; 83540; 83550; 85025; G0328